=== PATIENT | female | born 1940 | race Caucasian/White ===

== ENCOUNTER → 2018-05-21 00:53 | Outpatient (CLI) | payer BC, SELFPAY ==
--- NOTE | 2018-05-21 14:46 | DI.REPORT_ITS ---
SYMPTOMS/DIAGNOSIS: PREVENTATIVE HEALTH CARE, Z00.00, OSTEOPOROSIS, M81.0 DEXA SCAN: Routine examination. Comparison is 2013. Evaluation of the lateral spine shows no compression deformities. Evaluation of the left hip shows a total T score of -4.1 and a Z score of -2.3; this compares with a total T score of -3.7 from 2014. The finding is consistent with osteoporosis and an increased fracture risk. Evaluation of the lumbar spine shows a total T score of -3 and a Z score of -0.5; this compares with a total T score of -2.8 from 2014. This is also consistent with osteoporosis and a high fracture risk. IMPRESSION: Osteoporosis in the lumbar spine and left hip.
--- NOTE | 2018-05-21 15:18 | DI.REPORT_ITS ---
SYMPTOMS/DIAGNOSIS: SCREENING, [facility], Z00.00 MAMMOGRAMS: Mammograms were interpreted according to the usual protocol including computer analysis with CAD system, tomosynthesis and C view imaging. Comparison is with the prior examinations. No masses or microcalcifications are seen. There is nothing to suggest malignancy. IMPRESSION: Negative mammogram. Routine screening is recommended. Category 1 , breast density B. SA ASSESSMENT OF FINDINGS: Negative. Category 1. Patient will receive a letter notifying them of these results. BI-RADS category B. There are scattered areas of fibroglandular density.
== END ==
PROVIDERS: PCP Family Medicine; Visit Provider Family Medicine
DX: Z00.00 Encounter for general adult medical examination without abnormal findings (principal); M81.0 Age-related osteoporosis without current pathological fracture; Z12.31 Encounter for screening mammogram for malignant neoplasm of breast
CPT/HCPCS: 77063; 77067; 77080

== ENCOUNTER 2018-11-08 01:01 | Outpatient (CLI) | payer BC, SELFPAY ==
[2018-11-08 11:22] LABS: Anion Gap 4.3 mmol/L (3-11); BUN 20 mg/dL (7-18); CO2 35.7 mmol/L (21.0-32.0); CREATININE 0.79 mg/dL (0.55-1.02); Calcium 9.2 mg/dL (8.5-10.1); Chloride 96 mmol/L (98-107); Glucose 126 mg/dL (70-100); Potassium 4.4 mmol/L (3.5-5.1); Sodium 136 mmol/L (136-145); TSH (W/Ref FT4) 0.67 uIU/mL (0.358-3.74)
== END 2018-11-08 01:21 ==
PROVIDERS: PCP Family Medicine; Visit Provider Family Medicine
DX: I10 Essential (primary) hypertension (principal); E03.9 Hypothyroidism, unspecified
CPT/HCPCS: 36415; 80048; 84443

== ENCOUNTER 2019-05-19 12:17 | Outpatient (REF) | payer BC, SELFPAY ==
[2019-05-19 19:00] LABS: COMMENT (LAB VIEW ONLY) 29.04 mg/dL; Microalb ug/mg Crea 15.2 ug/mg Cr
== END 2019-05-19 12:37 ==
LOC: NCHCN 12:17
PROVIDERS: PCP Family Medicine; Visit Provider Family Medicine
DX: E10.9 Type 1 diabetes mellitus without complications (principal)
CPT/HCPCS: 82043; 82570

== ENCOUNTER 2019-06-14 08:59 | Emergency (ER) | payer BC, SELFPAY ==
[2019-06-14 08:58] VITALS: BP 171/67; PULSE 65
[2019-06-14 09:01] VITALS: BP 156/55; PULSE 55
[2019-06-14 09:06] VITALS: BP 171/67; PULSE 64; RESP 16; TEMP 36.6; O2SAT 93
--- NOTE | 2019-06-14 09:24 | W.ED.GENAD ---
Discharge Plan Disposition Patient Disposition: HOME Condition: Improving Discharge Details Chief Complaint: GenMedical Clinical Impression: Postoperative bleeding from incision Primary Care Provider: Evelyn Nevarez ED Provider: Kannan Jackson Home Meds and New Rx's Prescriptions: Continued acetaminophen [Tylenol] 325 MG tablet 325 mg PO Q4H PRN RF: 0 aspirin [Aspirin Low-Strength] 81 MG tablet,chewable 81 mg PO DAILY RF: 0 levothyroxine [Synthroid] 88 MCG tablet 88 mcg PO DAILY RF: 0 losartan 25 MG tablet 25 mg PO DAILY RF: 0 vitamin B complex 1 EACH capsule 1 ea PO DAILY RF: 0 cholecalciferol (vitamin D3) [Vitamin D3] 1,000 UNIT capsule 1,000 unit PO DAILY RF: 0 simvastatin [Zocor] 10 MG tablet 10 mg PO DAILY RF: 0 lorazepam 0.5 MG tablet 0.5 mg PO HS RF: 0 sertraline [Zoloft] 25 MG tablet 50 mg PO DAILY RF: 0 Humalog U-100 Insulin 100 UNIT/1 ML solution 100 unit SQ .PUMP RF: 0 Discharge Instructions Instructions: Acute Wound Care (ED), Skin Adhesive Care (ED) Additional Instructions: Please keep wound clean and dry and you may now let it be exposed to air. Try to minimize touching or manipulation of the wound itself to allow for appropriate reduction of bleeding. Return to the emergency department as needed for any further bleeding new or worsening symptoms or signs of infection. Otherwise follow-up with dermatology as previously scheduled. Referrals: Roger Dunne MD [ CONSULTING PHYSICIAN] - (Follow-up with informatics physician liaison as previously directed) Discharge Data Discharge Date/Time-TO BE ENTERED AT DEPARTURE: 06/14/19 10:14 Medical Decision Making Patient presenting to the emergency department for chief complaint of postprocedural facial bleeding. Patient had skin cancer removed from left cheek on by Dr. Dnune and she has noted bleeding continuing ever since the procedure occurred. She states that she attempted to contact his office for follow-up recommendations but was unable to contact anybody. Patient reports applying pressure, ice, and bandage changes with inability to stop bleeding. Patient has approximately 1 cm laceration with [address] to the left cheek with mild oozing type bleeding. No signs of dehiscence, infection, or other complications. Topical let was applied and left on for greater than 10 minutes to help with hemostasis and then small dab of glue was placed upon the inferior aspect of the wound where most of the bleeding was coming from to prevent any further oozing type bleeding. Return precautions discussed otherwise patient to follow-up with dermatology as previously directed. After discussion of diagnosis and plan of care patient has no further needs, questions, or concerns and states clear understanding to return to the emergency department for any worsening symptoms. HPI General Mode of arrival: ambulatory. Date/Time Provider Initiated Documentation: 06/14/19 09:08. Limitations to Documentation: no limitations. Information obtained by: patient. History of Present Illness 78 year old F presents to the emergency department with the chief complaint of Postprocedural bleeding, described as moderate, Quality is described as other (Denies pain), and is localized to the face. Patient started experiencing this day(s) (3) and it has been constant. No relieving factors improve symptom(s), No exacerbating factors reported . Patient notes no other symptoms.. Patient did receive the following treatments prior to arrival, none Related Data Home Medications Medication Instructions Recorded Confirmed Humalog U-100 Insulin 100 unit SQ .PUMP 12/24/12 09/27/18 acetaminophen [Tylenol] 325 mg PO Q4H PRN tab-cap 03/12/13 09/27/18 aspirin [Aspirin Low-Strength] 81 mg PO DAILY tab.chew 03/12/13 09/27/18 cholecalciferol (vitamin D3) 1,000 unit PO DAILY 05/14/15 09/27/18 [Vitamin D3] levothyroxine [Synthroid] 88 mcg PO DAILY tab-cap 05/14/15 09/27/18 losartan 25 mg PO DAILY tab-cap 05/14/15 09/27/18 vitamin B complex 1 ea PO DAILY 05/14/15 09/27/18 lorazepam 0.5 mg PO HS 08/28/17 09/27/18 sertraline [Zoloft] 50 mg PO DAILY tab-cap 08/28/17 09/27/18 simvastatin [Zocor] 10 mg PO DAILY tab-cap 08/28/17 09/27/18 Allergies Allergy/AdvReac Type Severity Reaction Status Date / Time metronidazole Allergy Unverified 09/27/18 08:05 amoxicillin trihydrate AdvReac Intermediate Nausea Unverified 09/27/18 08:05 [From Augmentin] blue dye AdvReac Intermediate Uncomfortab Unverified 09/27/18 08:05 le dicyclomine AdvReac Intermediate Headache Unverified 09/27/18 08:05 potassium clavulanate AdvReac Intermediate Nausea Unverified 09/27/18 08:05 [From Augmentin] General Stated Complaint: GenMedical LASHELL: 4 Review of Systems Cardiovascular Denies lightheadedness Integumentary/Breasts Reports as per HPI Hematologic/Lymphatic Denies easy bleeding and Denies easy bruising PFSH Medical History Depression Diabetes mellitus Social History Smoking/Tobacco Use Status: Never Alcohol Intake: never Drug use: Never Substance use type: does not use Do you feel safe in your relationship?: Yes Exam Const General: cooperative and no acute distress Orientation: alert, awake and oriented x3 Resp Effort & Inspection: normal respiratory effort and able to speak in complete sentences Skin Trauma: laceration (Approximately 1cm) left face linear and actively bleeding Course Vital Signs Temperature 36.6 C 06/14/19 09:06 Pulse 64 06/14/19 09:06 Respiratory Rate 16 06/14/19 09:06 Blood Pressure 171/67 H 06/14/19 09:06 Pulse Oximetry 93 L 06/14/19 09:06 Temperature 36.6 C 06/14/19 09:06 Temperature Source Skin 06/14/19 09:06 Pulse 64 06/14/19 09:06 Respiratory Rate 16 06/14/19 09:06 Respiratory Effort Non-Labored 06/14/19 09:09 Blood Pressure 171/67 H 06/14/19 09:06 Blood Pressure Position Sitting 06/14/19 09:06 Pulse Oximetry 93 L 06/14/19 09:06 Oxygen Delivery Method Room Air 06/14/19 09:06 Oxygen Flow Rate 0 06/14/19 09:06
[2019-06-14] MEDS: Lidocaine/Epinephri/Tetracaine Topical Gel 3 ML TP (09:30)
[2019-06-14 09:50] VITALS: RESP 15
--- NOTE | 2019-06-14 10:03 | NUR.NOTE ---
Nursing Note: Pt resting in stretcher. no signs of distress. No bleeding noted from surgical site.
== END 2019-06-14 10:14 | disposition home or self-care (01) ==
PROVIDERS: Emergency Provider Nurse Practitioner Family; PCP Family Medicine
DX: L76.21 Postprocedural hemorrhage of skin and subcutaneous tissue following a dermatologic procedure (principal); E11.9 Type 2 diabetes mellitus without complications; Z79.4 Long term (current) use of insulin
CPT/HCPCS: 12011

== ENCOUNTER 2019-11-11 12:52 | Outpatient (REF) | payer BC, SELFPAY ==
[2019-11-11 14:23] LABS: Folate 14.7 ng/mL (8.6-20.0); Vitamin B12 316 pg/mL (193-986)
== END 2019-11-11 13:12 ==
LOC: NCHCN 12:52
PROVIDERS: PCP Family Medicine; Visit Provider Family Medicine
DX: D75.89 Other specified diseases of blood and blood-forming organs (principal)
CPT/HCPCS: 82607; 82746

== ENCOUNTER 2019-11-28 20:53 | Emergency (ER) | payer BC, SELFPAY ==
[2019-11-28 21:05] VITALS: BP 114/81; PULSE 61; RESP 16; TEMP 36.3; O2SAT 99
--- NOTE | 2019-11-28 21:15 | W.ED.GENAD ---
Discharge Plan Disposition Patient Disposition: HOME Condition: Stable Discharge Details Chief Complaint: Nausea/Vomit/Diar Clinical Impression: Diarrhea Primary Care Provider: Evelyn Nevarez ED Provider: Raghu Clifton Holley Meds and New Rx's Prescriptions: Continued acetaminophen [Tylenol] 325 MG tablet 325 mg PO Q4H PRN RF: 0 aspirin [Aspirin Low-Strength] 81 MG tablet,chewable 81 mg PO DAILY RF: 0 vitamin B complex 1 EACH capsule 1 ea PO DAILY RF: 0 (DME) insulin syringe-needle U-100 [BD Insulin Syringe] 0.5 mL 29 gauge x 1/2 syringe See Rx Instructions .ROUTE .MEDSUPPLY Qty: 10 RF: 0 (DME) lancets [OneTouch UltraSoft Lancets] Misc See Rx Instructions .ROUTE .MEDSUPPLY Qty: 50 RF: 0 (DME) Contour Next Test Strips Strip See Rx Instructions .ROUTE .MEDSUPPLY Qty: 10 RF: 0 ketotifen fumarate [Alaway] 0.025 % (0.035 %) drops 1 drp OP BID RF: 0 ascorbate calcium (vitamin C) 500 mg tablet 500 mg PO DAILY RF: 0 polyethylene glycol 3350 [Miralax] 17 gram/dose powder 17 gm PO QHS PRNRF: 0 alum-mag hydroxide-simeth 200-200-20 mg/5 mL suspension 30 ml PO Q6H PRNRF: 0 Levemir U-100 Insulin 100 unit/mL solution 6 unit SC QHS RF: 0 sertraline 50 mg tablet 125 mg PO DAILY RF: 0 losartan 25 mg tablet 50 mg PO DAILY RF: 0 cholecalciferol (vitamin D3) [Vitamin D3] 25 mcg (1,000 unit) capsule 1,000 unit PO DAILY RF: 0 insulin lispro [Humalog U-100 Insulin] 100 unit/mL solution 100 unit subcut .PUMP RF: 0 levothyroxine [Synthroid] 88 mcg tablet 88 mcg PO DAILY RF: 0 lorazepam 0.5 mg tablet 0.5 mg PO HS RF: 0 simvastatin [Zocor] 10 mg tablet 10 mg PO DAILY RF: 0 Discharge Instructions Instructions: Acute Diarrhea (ED) Additional Instructions: if your stool is not soft or watery you do not need to collect any sample if symptoms continue this week see your primary care provider if you have abdominal pain, vomit or high fevers return to the emergency department Medical Decision Making 79 yo female who underwent Endoscopy yesterday at [facility] [place] for reflux symptoms comes in because she has had diarrhea today. Denies fevers, abdominal pain, vomit, recent travel, recent abx that she is aware of (unsure if any during procedure), no recent hospitalizations. STates she has had 7 watery stools today no blood or black stools. HAs no abdominal tenderness at all so doubt surgical pathology such as sbo and do not feel imaging at this time indicated. Will evaluate for electrolyte abnormalities and obtain stool sample. pt's labs reassuring, still no vomit or abdominal pain and not able to provide specimen here. Suspect this is related to her procedure but will send home with stool collection kit to return to lab when she is able to provide sample, return precautions given Differential Diagnosis Differential Diagnosis: c diff, viral gastroenteritis, food illness Medical Records Medical records reviewed: Yes I reviewed the patient's medical records. HPI General Mode of arrival: ambulatory. Date/Time Provider Initiated Documentation: 11/28/19 20:55. Limitations to Documentation: no limitations. Information obtained by: patient. History of Present Illness 79 year old F presents to the emergency department with the chief complaint of diarrhea, described as moderate, and it has been constant. No relieving factors improve symptom(s), No exacerbating factors reported . Patient did receive the following treatments prior to arrival, none Related Data Home Medications Medication Instructions Recorded Confirmed acetaminophen [Tylenol] 325 mg PO Q4H PRN tab-cap 03/12/13 11/28/19 aspirin [Aspirin Low-Strength] 81 mg PO DAILY tab.chew 03/12/13 11/28/19 vitamin B complex 1 ea PO DAILY 05/14/15 11/28/19 aluminum-mag hydroxide-simethicone 30 ml PO Q6H PRN ml 10/31/19 11/28/19 200 mg-200 mg-20 mg/5 mL oral susp ascorbate calcium (vitamin C) 500 500 mg PO DAILY 10/31/19 11/28/19 mg tablet blood sugar diagnostic #10 each 10/31/19 11/13/19 cholecalciferol (vitamin D3) 25 1,000 unit PO DAILY 10/31/19 11/28/19 mcg (1,000 unit) capsule insulin detemir U-100 100 unit/mL 6 unit SC QHS ml 10/31/19 11/28/19 subcutaneous solution insulin lispro 100 unit/mL 100 unit SUBCUT .PUMP 10/31/19 11/28/19 subcutaneous solution insulin syringe-needle U-100 0.5 #10 each 10/31/19 11/13/19 mL 29 gauge x 1/2 ketotifen fumarate 0.025 % (0.035 1 drp OP BID 10/31/19 11/28/19 %) eye drops lancets #50 each 10/31/19 11/13/19 levothyroxine 88 mcg tablet 88 mcg PO DAILY tab-cap 10/31/19 11/28/19 lorazepam 0.5 mg tablet 0.5 mg PO HS 10/31/19 11/28/19 losartan 25 mg tablet 50 mg PO DAILY tab-cap 10/31/19 11/28/19 polyethylene glycol 3350 17 17 gm PO QHS PRN gm 10/31/19 11/28/19 gram/dose oral powder sertraline 50 mg tablet 125 mg PO DAILY tab 10/31/19 11/28/19 simvastatin 10 mg tablet 10 mg PO DAILY tab-cap 10/31/19 11/28/19 Allergies Allergy/AdvReac Type Severity Reaction Status Date / Time demeclocycline Allergy Intermediate Verified 11/13/19 09:28 [From Declomycin] metronidazole Allergy Verified 11/13/19 09:28 amoxicillin trihydrate AdvReac Intermediate Nausea Verified 11/13/19 09:28 [From Augmentin] blue dye AdvReac Intermediate Uncomfortab Verified 11/13/19 09:28 le dicyclomine AdvReac Intermediate Headache Unverified 09/27/18 08:05 potassium clavulanate AdvReac Intermediate Nausea Verified 11/13/19 09:28 [From Augmentin] General Stated Complaint: Nausea/Vomit/Diar LASHELL: 3 Review of Systems All systems reviewed & are unremarkable except as noted in HPI and below Constitutional Constitutional: Denies chills, Denies fever(s) and Denies weakness Cardiovascular Cardiovascular: Denies chest pain and Denies dyspnea Respiratory Respiratory: Denies cough and Denies dyspnea Gastrointestinal Gastrointestinal: Denies abdominal pain and Denies vomiting Musculoskeletal Musculoskeletal: Denies joint swelling Neurologic Neurologic: Denies weakness Psychiatric Psychiatric: Denies depression [facility] Medical History (Updated 11/28/19 @ 22:08 by Raghu Clifton MD) Abrasion of labia with infection (Resolved) 08/2019 treated with use of mupirocin 2%. Lesion healed at time of WW C visit 11/13/2019. KLAUDIA positive (Acute) Anxiety with depression (Acute) Basal cell carcinoma (Acute) Cataract (Chronic) Depression Diabetes mellitus Dysphagia (Acute) Gastroparesis diabeticorum (Acute) Generalized degenerative joint disease of hand (Acute) Hematuria, microscopic (Acute) History of basal cell carcinoma (BCC) (Acute) Hyperlipidemia (Acute) Hypertension, essential, benign (Acute) Hypothyroidism (Chronic) Macrocytosis (Acute) Osteoporosis (Chronic) Preventative health care (Acute) Tremor (Acute) Tremor, essential (Acute) Trochanteric bursitis, left hip (Acute) Type 1 diabetes mellitus without complications (Acute) Urinary incontinence (Acute) Social History Smoking/Tobacco Use Status: Never Alcohol Intake: never Drug use: Never Substance use type: does not use Do you feel safe at home: Yes Do you feel safe in your relationship?: Yes Exam Const General: no acute distress Orientation: alert HENMT Head: normal to inspection Ears: external ears normal General nose exam: external nose normal Mouth: moist mucous membranes Eyes General: appearance normal, both eyes and all related structures Neck Neck: normal visual inspection Resp Effort & Inspection: normal respiratory effort and able to speak in complete sentences Cardio Rate: regular rate GI Palpation: soft and nontender Skin General skin exam: no rashes or lesions noted Neuro General: alert and oriented x3 Extrem General: normal to inspection Psych Mental Status: mental status grossly normal Course Vital Signs Vital signs: Vital Signs Temperature 36.3 C L 11/28/19 21:05 Pulse 61 11/28/19 21:05 Respiratory Rate 16 11/28/19 21:05 Blood Pressure 114/81 11/28/19 21:05 Pulse Oximetry 99 11/28/19 21:05 Temperature 36.3 C L 11/28/19 21:05 Temperature Source Skin 11/28/19 21:05 Pulse 61 11/28/19 21:05 Respiratory Rate 16 11/28/19 21:05 Respiratory Effort 11/28/19 21:03 Blood Pressure 114/81 11/28/19 21:05 Pulse Oximetry 99 11/28/19 21:05 Oxygen Delivery Method Room Air 02/14/20 21:05 Oxygen Flow Rate 0 11/28/19 21:05
[2019-11-28 21:24] LABS: Absolute Basophil Count 0.01 k/cumm (0.0-0.2); Absolute Eosinophil Count 0.05 k/cumm (0.0-0.7); Absolute Lymphocyte Count 1.89 k/cumm (1.2-3.4); Absolute Monocyte Count 0.46 k/cumm (0.11-0.7); Basophils % 0.2; Eosinophils % 0.9; HCT 38.5 % (36.0-46.0); HGB 13.1 g/dL (12.0-15.5); Lymphocytes % 32.5; Mean Corpuscular Hemoglobin 33.6 pg (27.0-33.0); Mean Corpuscular Volume 98.7 fL (80-95); Mean Platelet Volume 10.1 fL (8.0-11.0); Monocytes % 7.9; Neutrophils % 58.5; Platelet Count 237 x1000/uL (130-400); RBC Distribution Width 12.1 % (11.7-14.6); White Blood Cell Count 5.81 k/cumm (4.4-10.8)
[2019-11-28] MEDS: Normal Saline 1,000 ML 1000 ML IV (21:28)
[2019-11-28] MEDS: Loperamide 2 MG CAP 4 MG PO (21:28)
[2019-11-28] MEDS: Normal Saline Flush 10 ML SYR IVP (21:29)
--- NOTE | 2019-11-28 21:30 | NUR.NOTE ---
Pt reports diarrhea all day after having upper endoscopy at [facility] [place] 11/27/19. Pt reports abd tenderness with palpation. Denies black/bloody stools. #20 RAC, labs drawn. NS infusing. Denies fevers, recent abx use.
[2019-11-28 21:36] LABS: ALT 34 U/L (14-59); AST 34 U/L (15-37); Alkaline Phosphatase 142 U/L (46-116); Anion Gap 6.8 mmol/L (3-11); BUN 17 mg/dL (7-18); Bilirubin, Total 0.3 mg/dL (0.2-1.0); CO2 31.2 mmol/L (21.0-32.0); CREATININE 0.81 mg/dL (0.55-1.02); Calcium 9.3 mg/dL (8.5-10.1); Chloride 97 mmol/L (98-107); Glucose 172 mg/dL (74-106); Magnesium 1.8 mg/dL (1.8-2.4); Potassium 4.2 mmol/L (3.5-5.1); Sodium 135 mmol/L (136-145); Total Protein 7.4 g/dL (6.4-8.2)
[2019-11-28 21:37] LABS: PTT Activated 23.3 sec (21.0-31.4); Prothrombin Time 10.4 sec (9.3-11.0)
--- NOTE | 2019-11-28 22:11 | NUR.NOTE ---
up to BR x 2, no further diarrhea. plan for DC home.
[2019-11-28 22:30] VITALS: BP 156/68; PULSE 65; RESP 16; O2SAT 100
== END 2019-11-28 22:10 | disposition home or self-care (01) ==
PROVIDERS: Emergency Provider Emergency Medicine; PCP Family Medicine
DX: R19.7 Diarrhea, unspecified (principal); I10 Essential (primary) hypertension; E10.9 Type 1 diabetes mellitus without complications
CPT/HCPCS: 36415; 80053; 96360; 99284; 83735; 85025; 85610; 85730

== ENCOUNTER 2020-03-19 03:16 | Outpatient (CLI) | payer BC, MEDICARE, SELFPAY ==
[2020-03-19 11:09] LABS: Hemoglobin A1C 7.6 % (3.8-5.6)
[2020-03-19 12:00] LABS: Anion Gap 5.3 mmol/L (3-11); BUN 24 mg/dL (7-18); CO2 30.7 mmol/L (21.0-32.0); CREATININE 0.87 mg/dL (0.55-1.02); Chloride 96 mmol/L (98-107); Glucose 198 mg/dL (74-106); Potassium 4.4 mmol/L (3.5-5.1); Sodium 132 mmol/L (136-145)
== END 2020-03-19 03:36 ==
PROVIDERS: PCP Family Medicine; Visit Provider Urology
DX: E10.9 Type 1 diabetes mellitus without complications (principal); N39.41 Urge incontinence
CPT/HCPCS: 36415; 80048; 83036

== ENCOUNTER 2020-05-20 01:17 | Outpatient (CLI) | payer BC, MEDICARE, SELFPAY ==
--- NOTE | 2020-05-20 10:33 | DI.US_ITS ---
APPROVED REPORT EXAM: Comprehensive 2D, Doppler, and color-flow Echocardiogram Patient Location: Out-Patient [employer] Layer Helper: Alyson Mcwilliams RDCS (AE) Indications: Edema Other Information Study Quality: Adequate Conclusion Left Ventricle : The left ventricle is normal size. The left ventricular systolic function is normal. The left ventricular ejection fraction is within the normal range. There is normal left ventricular wall thickness. There is normal LV segmental wall motion. There is grade 2 diastolic dysfunction. LVE F is 60%. Right Ventricle : The right ventricle is normal size. The right ventricular systolic function is norm al. The RVSP is 26.6mmHg. Atria : The left atrium size is normal. The right atrium size is normal. Valves: There are no hemodynamically significant valvular lesions. Great Vessels : The aortic root is normal in size. Ascending aorta is not well visualized. Aortic arc h is not well visualized. IVC is normal in size and collapses >50% with inspiration. There is no prior study available for comparison. No LV wall thickness is measured as normal, LV mass appears large. Would consider additional imaging with cardiac MRI and consideration for cardiac amyloidosis. Wall motion Left Ventricle The left ventricle is normal size. The left ventricular systolic function is normal. The left ventric ular ejection fraction is within the normal range. There is normal left ventricular wall thickness. T here is normal LV segmental wall motion. There is grade 2 diastolic dysfunction. There is no ventricu lar septal defect visualized. LVEF is 60%. Right Ventricle The right ventricle is normal size. The right ventricular systolic function is normal. The RVSP is 26 .6mmHg. Atria The left atrium size is normal. The right atrium size is normal. The interatrial septum is intact wit h no evidence for an atrial septal defect. Aortic Valve The Aortic valve is sclerotic. Aortic valve is probably trileaflet. There is no aortic valvular steno sis. No aortic regurgitation is present. Mitral Valve Severe mitral annular calcification. No evidence of mitral valve stenosis. Mild mitral regurgitation. Tricuspid Valve The tricuspid valve is normal in structure. There is no tricuspid valve stenosis. Mild tricuspid regu rgitation. Pulmonic Valve The pulmonary valve is normal in structure. There is no pulmonic valvular stenosis. There is no pulmo ciaran valvular regurgitation. Great Vessels The aortic root is normal in size. Ascending aorta is not well visualized. Aortic arch is not well vi sualized. IVC is normal in size and collapses >50% with inspiration. Pericardium There is no pericardial effusion. 2D Dimensions IVSD d PLAX 0.72 cm F: 0.6-1.0 LV Vol A2C d MOD 43.9 mL LVPW d PLAX 0.74 cm F: 0.6 - 1.0 LV Vol A4C d MOD 43.1 mL LVID d PLAX 3.46 cm F: 3.8 - 5.2 LA vol/ BSA A4C s A-L 23.8 mL/m2 LVDs 2.35 cm F: 2.2 - 3.5 LA Area A4C s MOD 13.23 cm2 Ao Root d 2.76 cm F: 2.7 - 3.3 LV EF A4C MOD 62.6 % RA Area A4C 10.48 cm2 LV EF A2C MOD 64.3 % RA Vol/ BSA A4C s A-L 16.5 mL/m2 LV EF Biplane MOD 63.4 % LV EF Teichholz 61.3 % SV 29.36 mL LVEF (Kumar's) 63.37 % F: 54 - 74 SV Index 21.72 mL/m2 LV Volume 40.30 mL F: 46 - 106 LV Volume Index 29.85 mL/m2 F: 29 - 61 LV Vol Biplane MOD 46.3 mL FS 32.00 % M-Mode TAPSE 2.20 cm (M/F) >1.7 LV Diastology MV E' medial 0.049 (>0.07 m/s) E/A Ratio 0.8 LV E/e MED 22.75 (<14) MV E Vmax 1.11 (0.4-1.3 m/s) MV E' lateral 0.057 (>0.1 m/s) MV A Vmax 1.35 (0.4-1.3 m/s) LV E/e LAT 19.60 (<14) MV E/A Ratio 0.81 MV E/E' medial 22.77 MV E/E' lateral 19.63 Aortic Valve LVOT Area 2.07 cm2 AoV Area Vmax 1.24 cm2 LVOT Vmax 1.01 m/s AoV Area/ BSA (Vmax) 0.91 cm2/m2 LVOT Mean Emmanuel. 0.65 m/s DAHLIA Mean Emmanuel. 1.28 cm2 LVOT Peak Grad 4.1 mmHg DAHLIA Mean Emmanuel. Index 0.94 cm2/m2 LVOT Mean Grad 2.0 mmHg LVOT VTI 0.215 m LVOT Diam s 1.60 cm AoV Vmax 1.69 m/s Velocity Ratio 0.59 AoV Mean Emmanuel. 1.05 m/s AoV Peak Grad 11.4 mmHg LVOT SV 44.49 mL AoV Mean Grad 5.2 mmHg AoV VTI 0.322 m AoV Area VTI 1.38 cm2 AoV Area/ BSA (VTI) 1.02 cm/m2 Mitral Valve MV DT 323 (160-240 msec) MV PHT 94 msec MV Area PHT 2.35 cm2 MV VTI 0.457 m MV Area VTI 0.97 (4.0-6.0 cm2) Pulmonary Valve PV Vmax 0.91 (0.5-1.5 m/s) RVOT Peak Gr. 3.00 mmHg PV Peak Grad 3.3 mmHg RVOT Mean Gr. 1.50 mmHg PV Mean Grad 1.7 mmHg RVOT VTI 0.194 m PV VTI 0.210 m RVOT Vmax 0.87 m/s Tricuspid Valve TR Peak Grad 23.5 mmHg TR Vmax 2.43 m/s RA Pressure 3.00 mmHg RVSP (TR) 26.6 mmHg
== END 2020-05-20 01:37 ==
PROVIDERS: PCP Family Medicine; Visit Provider Family Medicine
DX: R60.0 Localized edema (principal); I08.1 Rheumatic disorders of both mitral and tricuspid valves
CPT/HCPCS: 93306

== ENCOUNTER 2020-06-03 01:24 | Outpatient (CLI) | payer BC, SELFPAY ==
[2020-06-03 13:10] LABS: HCT 37.4 % (36.0-46.0); HGB 12.5 g/dL (11.2-15.7); MCH 33.6 pg (27.0-33.0); MCHC 33.4 % (32.0-36.0); MCV 100.5 fL (80-95); MPV 10.5 fL (8.0-11.0); Platelet Count 200 10^3/uL (130-400); RBC 3.72 10^6/uL (3.93-5.22); RDW 12.3 % (11.7-14.6); RDW-SD 45.4 fL; WBC 5.88 10^3/uL (4.4-10.8)
[2020-06-03 14:20] LABS: Vitamin D 25 Total 58.8 ng/ml (30-100)
[2020-06-03 14:24] LABS: ALT 30 U/L (14-59); AST 23 U/L (15-37); Albumin 3.9 g/dL (3.4-5.0); Alkaline Phosphatase 133 U/L (46-116); Anion Gap 7.7 mmol/L (3-11); BUN 25 mg/dL (7-18); Bilirubin, Total 0.3 mg/dL (0.2-1.0); CO2 29.3 mmol/L (21.0-32.0); Chloride 97 mmol/L (98-107); Folate 17.8 ng/mL (8.6-20.0); Glucose 255 mg/dL (74-106); Potassium 4.2 mmol/L (3.5-5.1); Sodium 134 mmol/L (136-145); TSH (W/Ref FT4) 0.31 uIU/mL (0.36-3.74); Vitamin B12 277 pg/mL (193-986)
[2020-06-03 14:42] LABS: FREE T4 1.05 ng/dL (0.76-1.46)
[2020-06-04 11:43] LABS: Kappa Free Light Chain 2.65 mg/dL (0.33-1.94); Lambda Free Light Chain 2.22 mg/dL (0.57-2.63)
[2020-06-04 13:46] LABS: Albumin 61.2 % (55.8-66.1); Total Protein 6.9 g/dL (6.3-8.2)
== END 2020-06-03 01:44 ==
PROVIDERS: PCP Family Medicine; Visit Provider Family Medicine
DX: E10.9 Type 1 diabetes mellitus without complications (principal); I10 Essential (primary) hypertension; E03.9 Hypothyroidism, unspecified; M81.0 Age-related osteoporosis without current pathological fracture; R60.0 Localized edema; I51.7 Cardiomegaly
CPT/HCPCS: 36415; 80053; 82306; 85027; 82607; 82746; 83036; 83883; 84165; 84439; 84443

== ENCOUNTER 2020-10-01 15:26 | Outpatient (REF) | payer BC, SELFPAY ==
[2020-10-04 16:07] LABS: COVID-19 RT-PCR UVMMC Result Negative (Negative)
== END 2020-10-01 15:46 ==
LOC: NCHCN 15:26
PROVIDERS: PCP Family Medicine; Visit Provider Nurse Practitioner Family
DX: R53.83 Other fatigue
CPT/HCPCS: U0003

== ENCOUNTER 2020-10-11 18:09 | Emergency (ER) | payer BC, SELFPAY ==
[2020-10-11 18:16] VITALS: BP 130/66; PULSE 72; RESP 20; TEMP 36.5; O2SAT 100
[2020-10-11 18:43] LABS: Abs Immature Grans 0.02 10^3/uL (0.0-0.06); Absolute Basophil Count 0.01 10^3/uL (0.0-0.2); Absolute Eosinophil Count 0.02 10^3/uL (0.0-0.7); Absolute Lymphocyte Count 1.17 10^3/uL (1.2-3.4); Absolute Monocyte Count 0.38 10^3/uL (0.1-0.8); Absolute Neutrophil Count 5.11 10^3/uL (1.2-6.7); Basophils % 0.1; Eosinophils % 0.3; HGB 12.4 g/dL (11.2-15.7); Immature Grans % 0.3; Lymphocytes % 17.4; MCH 33.9 pg (27.0-33.0); MCHC 34.4 % (32.0-36.0); MCV 98.4 fL (80-95); MPV 10.8 fL (8.0-11.0); Monocytes % 5.7; Neutrophils % 76.2; Nucleated RBC 0 %; Platelet Count 202 10^3/uL (130-400); RBC 3.66 10^6/uL (3.93-5.22); RDW 11.9 % (11.7-14.6); RDW-SD 42.5 fL; WBC 6.71 10^3/uL (4.4-10.8)
[2020-10-11] MEDS: Normal Saline 1,000 ML 1000 ML IV (18:46)
[2020-10-11 18:56] LABS: ALT 27 U/L (14-59); AST 22 U/L (15-37); Albumin 3.8 g/dL (3.4-5.0); Alkaline Phosphatase 140 U/L (46-116); Anion Gap 6.3 mmol/L (3-11); BUN 28 mg/dL (7-18); Bilirubin, Total 0.3 mg/dL (0.2-1.0); CO2 29.7 mmol/L (21.0-32.0); CREATININE 1.09 mg/dL (0.55-1.02); Calcium 8.9 mg/dL (8.5-10.1); Chloride 94 mmol/L (98-107); Estimated GFR 48.42 (mL/min/1.73m2); Glucose 441 mg/dL (74-106); Potassium 3.9 mmol/L (3.5-5.1); Sodium 130 mmol/L (136-145); Total Protein 6.9 g/dL (6.4-8.2)
--- NOTE | 2020-10-11 19:55 | NUR.NOTE ---
Nursing Note: Patient turned off personal insulin pump.
[2020-10-11 19:58] LABS: Bilirubin Negative (Negative); Blood Trace-intact (Negative); Clarity Clear (Clear); Glucose 500 mg/dL (Negative); Ketones Negative (Negative); Leukocyte Esterase Negative (Negative); Nitrite Negative (Negative); Urobilinogen 0.2 EU/dL (Up TO 0.2)
[2020-10-11] MEDS: Insulin Aspart 100 UNITS/ML UNIT 10 UNITS SC (20:05)
[2020-10-11 20:07] LABS: Bacteria Negative HPF (Negative); C & S Indicated? No; Casts Negative LPF (Negative); Crystals Negative HPF (Negative); Epithelial Cells Few HPF (Negative); Mucus Negative (Negative); RBC 0-2 HPF (0-2)
--- NOTE | 2020-10-11 20:25 | ED.GENADUL_ITS ---
Discharge Plan Disposition Patient Disposition: HOME Condition: Stable Discharge Details Clinical Impression: Hyperglycemia, Urinary incontinence Primary Care Provider: Evelyn Nevarez ED Provider: uPneet Bell Home Meds and New Rx's Prescriptions: No Action acetaminophen [Tylenol] 325 MG tablet 325 mg PO Q4H PRN RF: 0 aspirin [Aspirin Low-Strength] 81 MG tablet,chewable 81 mg PO DAILY RF: 0 vitamin B complex 1 EACH capsule 1 ea PO DAILY RF: 0 (DME) insulin syringe-needle U-100 [BD Insulin Syringe] 0.5 mL 29 gauge x 1/2 syringe See Rx Instructions .ROUTE .MEDSUPPLY Qty: 10 RF: 0 (DME) lancets [OneTouch UltraSoft Lancets] Misc See Rx Instructions .ROUTE .MEDSUPPLY Qty: 50 RF: 0 (DME) Contour Next Test Strips Strip See Rx Instructions .ROUTE .MEDSUPPLY Qty: 10 RF: 0 ketotifen fumarate [Alaway] 0.025 % (0.035 %) drops 1 drp OP BID RF: 0 ascorbate calcium (vitamin C) 500 mg tablet 500 mg PO DAILY RF: 0 polyethylene glycol 3350 [Miralax] 17 gram/dose powder 17 gm PO QHS PRNRF: 0 alum-mag hydroxide-simeth 200-200-20 mg/5 mL suspension 30 ml PO Q6H PRNRF: 0 Levemir U-100 Insulin 100 unit/mL solution 6 unit SC QHS RF: 0 sertraline 50 mg tablet 125 mg PO DAILY RF: 0 losartan 25 mg tablet 50 mg PO DAILY RF: 0 cholecalciferol (vitamin D3) [Vitamin D3] 25 mcg (1,000 unit) capsule 1,000 unit PO DAILY RF: 0 insulin lispro [Humalog U-100 Insulin] 100 unit/mL solution 100 unit subcut .PUMP RF: 0 levothyroxine [Synthroid] 88 mcg tablet 88 mcg PO DAILY RF: 0 lorazepam 0.5 mg tablet 0.5 mg PO HS RF: 0 simvastatin [Zocor] 10 mg tablet 10 mg PO DAILY RF: 0 Discharge Instructions Instructions: Diabetic Hyperglycemia (ED) Additional Instructions: Please keep your insulin pump turned off. You were given 10 units of short acting insulin here in the emergency department and then you were given 10 units of long-acting insulin here in the emergency department. Take short acting insulin (Humalog) 2 to 3 units with meals tomorrow. 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 Call tomorrow if you do not hear from them in the morning. If your urinary incontinence does not improve with improved blood sugar, please follow-up with urology. Please contact your primary care physician to arrange follow-up. Return to the ER for any worsening or new concerning symptoms. Referrals: Bertin Barney MD [ [facility] STAFF PHYSICIAN] - Evelyn Nevarez MD [Primary Care Provider] - Medical Decision Making 80-year-old female with history of insulin-dependent diabetes, on insulin pump, here with elevated blood sugar in the 400-500 range for the past 1 week, poor appetite with nausea. Patient also with urinary incontinence. Abdominal exam benign. Labs reviewed and no leukocytosis. Patient has hyperglycemia with blood sugar of 444 with no acidosis. Urinalysis is not consistent with UTI but does have significant glucose. Concern for insulin pump failure. Patient given 1 L crystalloid bolus and and NovoLog 10 units. She consumed a slice of bread with peanut butter. Repeat blood sugar was 319. I called and spoke with endocrinology at [facility], discussed ED presentation course, and they recommend turning off insulin pump, giving Lantus 10 units tonight and starting Humalog 2 to 3 units with meals tomorrow. They will speak with treating physician tomorrow and contact the patient to adjust pump and dosing further. Plan was discussed with patient who verbalized understanding and is able to perform dosing adjustment. HPI General Mode of arrival: ambulatory . Date/Time Provider Initiated Documentation: 10/11/20 18:16 . Limitations to Documentation: no limitations . Information obtained by: patient . HPI Narrative: 80-year-old female with insulin-dependent diabetes, on insulin pump, here with concern for hyperglycemia. Patient notes sugars have been elevated for the past 1 week. She notes she has been using her pump as prescribed. She is concerned about pump failure. Sugars been as high as the 400s. No modifiers. She also notes associated urinary incontinence. No dysuria or fever. Related Data Home Medications Medication Instructions Recorded Confirmed acetaminophen [Tylenol] 325 mg PO Q4H PRN tab-cap 03/12/13 10/11/20 aspirin [Aspirin Low-Strength] 81 mg PO DAILY tab.chew 03/12/13 10/11/20 vitamin B complex 1 ea PO DAILY 05/14/15 10/11/20 aluminum-mag hydroxide-simethicone 30 ml PO Q6H PRN ml 10/31/19 10/11/20 200 mg-200 mg-20 mg/5 mL oral susp ascorbate calcium (vitamin C) 500 500 mg PO DAILY 10/31/19 10/11/20 mg tablet blood sugar diagnostic #10 each 10/31/19 11/13/19 cholecalciferol (vitamin D3) 25 1,000 unit PO DAILY 10/31/19 10/11/20 mcg (1,000 unit) capsule insulin detemir U-100 100 unit/mL 6 unit SC QHS ml 10/31/19 10/11/20 subcutaneous solution insulin lispro 100 unit/mL 100 unit SUBCUT .PUMP 10/31/19 10/11/20 subcutaneous solution insulin syringe-needle U-100 0.5 #10 each 10/31/19 11/13/19 mL 29 gauge x 1/2 ketotifen fumarate 0.025 % (0.035 1 drp OP BID 10/31/19 10/11/20 %) eye drops lancets #50 each 10/31/19 11/13/19 levothyroxine 88 mcg tablet 88 mcg PO DAILY tab-cap 10/31/19 10/11/20 lorazepam 0.5 mg tablet 0.5 mg PO HS 10/31/19 10/11/20 losartan 25 mg tablet 50 mg PO DAILY tab-cap 10/31/19 10/11/20 polyethylene glycol 3350 17 17 gm PO QHS PRN gm 10/31/19 10/11/20 gram/dose oral powder sertraline 50 mg tablet 125 mg PO DAILY tab 10/31/19 10/11/20 simvastatin 10 mg tablet 10 mg PO DAILY tab-cap 10/31/19 10/11/20 Allergies Allergy/AdvReac Type Severity Reaction Status Date / Time demeclocycline Allergy Intermediate Verified 10/11/20 18:27 [From Declomycin] metronidazole Allergy Verified 10/11/20 18:27 amoxicillin trihydrate AdvReac Intermediate Nausea Verified 10/11/20 18:27 [From Augmentin] blue dye AdvReac Intermediate Uncomfortab Verified 10/11/20 18:27 le dicyclomine AdvReac Intermediate Headache Unverified 10/11/20 18:27 potassium clavulanate AdvReac Intermediate Nausea Verified 10/11/20 18:27 [From Augmentin] General Stated Complaint: Diabetes LASHELL: 3 Review of Systems All systems reviewed & are unremarkable except as noted in HPI and below Constitutional Constitutional: Denies fever(s) Gastrointestinal Gastrointestinal: Denies abdominal pain, Reports nausea and Denies vomiting Genitourinary Genitourinary: Reports as per HPI [facility] Medical History Abrasion of labia with infection 08/2019 treated with use of mupirocin 2%. Lesion healed at time of [facility] C visit 11/13/2019. KLAUDIA positive Anxiety with depression Basal cell carcinoma Cataract Depression Diabetes mellitus Dysphagia Gastroparesis diabeticorum Generalized degenerative joint disease of hand Hematuria, microscopic History of basal cell carcinoma (BCC) Hyperlipidemia Hypertension, essential, benign Hypothyroidism Macrocytosis Osteoporosis Preventative health care Tremor Tremor, essential Trochanteric bursitis, left hip Type 1 diabetes mellitus without complications Urgency incontinence Urinary incontinence Social History Smoking/Tobacco Use Status: Never Smoking risk assessment performed?: Yes Alcohol Intake: never Drug use: Never Substance use type: does not use Do you feel safe at home: Yes Do you feel safe in your relationship?: Yes Exam Const General: no acute distress and not diaphoretic Nutritional Appearance: thin Orientation: alert, awake and oriented x3 HENMT Mouth: moist mucous membranes Eyes Conjunctivae: normal conjunctivae Sclera: normal sclerae Resp Auscultation: clear to auscultation bilaterally, no rales, no rhonchi and no wheezes Cardio Rate: regular rate and not tachycardic Rhythm: regular rhythm GI Palpation: soft, not firm, no guarding, no masses, not rigid and nontender Skin General skin exam: no rashes or lesions noted Neuro General: patient alert, patient awake and tone normal Extrem General: no edema Psych Appearance: grossly normal Mental Status: mental status grossly normal Course Vital Signs Vital signs: Vital Signs Temperature 36.5 C 10/11/20 18:16 Pulse 72 10/11/20 18:16 Respiratory Rate 20 10/11/20 18:16 Blood Pressure 130/66 10/11/20 18:16 Pulse Oximetry 100 10/11/20 18:16 Temperature 36.5 C 12/28/20 18:16 Temperature Source Skin 10/11/20 18:16 Pulse 72 10/11/20 18:16 Respiratory Rate 20 10/11/20 18:16 Respiratory Effort Non-Labored 10/11/20 18:29 Blood Pressure 130/66 10/11/20 18:16 Blood Pressure Position Sitting 10/11/20 18:16 Pulse Oximetry 100 10/11/20 18:16 Oxygen Delivery Method Room Air 10/11/20 18:16 Oxygen Flow Rate 0 10/11/20 18:16 Pain Level 0 10/11/20 18:16 Lab/Test Results Lab/Test Results: Laboratory Tests Range/Units 10/11/20 10/11/20 10/11/20 18:40 18:40 19:45 WBC (4.4-10.8) 10^3/uL 6.71 RBC (3.93-5.22) 10^6/uL 3.66 L Hgb (11.2-15.7) g/dL 12.4 Hct (36.0-46.0) % 36.0 MCV (80-95) fL 98.4 H MCH (27.0-33.0) pg 33.9 H MCHC (32.0-36.0) % 34.4 RDW (11.7-14.6) % 11.9 Plt Count (130-400) 10^3/uL 202 MPV (8.0-11.0) fL 10.8 Immature Gran % 0.3 Neutrophils % 76.2 Lymphocytes % 17.4 Monocytes % 5.7 Eosinophils % 0.3 Basophils % 0.1 Nucleated RBC % % 0 Absolute Neutrophils (1.2-6.7) 10^3/uL 5.11 Absolute Lymphocytes (1.2-3.4) 10^3/uL 1.17 L Absolute Monocytes (0.1-0.8) 10^3/uL 0.38 Absolute Eosinophils (0.0-0.7) 10^3/uL 0.02 Absolute Basophils (0.0-0.2) 10^3/uL 0.01 Sodium (136-145) mmol/L 130 L Potassium (3.5-5.1) mmol/L 3.9 Chloride (98-107) mmol/L 94 L Carbon Dioxide (21.0-32.0) mmol/L 29.7 Anion Gap (3-11) mmol/L 6.3 BUN (7-18) mg/dL 28 H Creatinine (0.55-1.02) mg/dL 1.09 H Estimated GFR/1.73 m2 (mL/min/1.73m2) 48.42 Glucose (74-106) mg/dL 441 H Calcium (8.5-10.1) mg/dL 8.9 Total Bilirubin (0.2-1.0) mg/dL 0.3 AST (15-37) U/L 22 ALT (14-59) U/L 27 Alkaline Phosphatase (46-116) U/L 140 H Total Protein (6.4-8.2) g/dL 6.9 Albumin (3.4-5.0) g/dL 3.8 Urine Color (Yellow) Yellow Urine Clarity (Clear) Clear Urine pH (5-8) 7.0 Ur Specific Mcbrides (1.005-1.025) 1.020 Urine Protein (Negative) mg/dL Negative Urine Ketones (Negative) mg/dL Negative Urine Blood (Negative) Trace-intact H Urine Nitrite (Negative) Negative Urine Bilirubin (Negative) Negative Urine Urobilinogen (Up TO 0.2) EU/dL 0.2 Ur Leukocyte Esterase (Negative) Negative Urine RBC (0-2) HPF 0-2 Urine WBC (0-5) HPF 3-5 Ur Epithelial Cells (Negative) HPF Few Urine Crystals (Negative) HPF Negative Urine Bacteria (Negative) HPF Negative Urine Casts (Negative) LPF Negative Urine Mucus (Negative) Negative Ur Culture Indicated? No Urine Glucose (Negative) mg/dL 500 H
[2020-10-11 20:58] VITALS: BP 104/68; PULSE 68; RESP 16; O2SAT 100
[2020-10-11 21:20] VITALS: BP 116/57; PULSE 67; RESP 16; O2SAT 99
[2020-10-11] MEDS: Insulin Glargine 100 UNITS/ML UNIT 10 UNITS SC (21:56)
--- NOTE | 2020-10-12 08:05 | NUR.NOTE ---
referal to care managment for help with servicesNursing Note:
== END 2020-10-11 22:00 | disposition home or self-care (01) ==
PROVIDERS: Emergency Provider Student in an Organized Health Care Education/Training Program; PCP Family Medicine
DX: E10.65 Type 1 diabetes mellitus with hyperglycemia (principal); R32 Unspecified urinary incontinence; T85.694A Other mechanical complication of insulin pump, initial encounter; Z96.41 Presence of insulin pump (external) (internal); I10 Essential (primary) hypertension
CPT/HCPCS: 36415; 36416; 80053; 82962; 96360; 96372; 99284; 81003; 81015; 85025; J1815

== ENCOUNTER 2020-10-12 15:22 | Emergency (ER) | payer BC, SELFPAY ==
--- OUTSIDE RECORDS SUMMARY | 2020-10-12 15:34 | XMS_ITS ---
:1940 Author Care Team Providers Name Role Phone DR. CRISTINA GARCIA Primary Care Provider [phone] DR. CRISTINA GARCIA Referring Provider [phone] Allergies Code Code System Name Reaction Severity Status Onset 485025 RxNorm Augmentin Nausea Severe Active ? Vomiting Severe Active ? Blue Dye Rash Severe Active ? Declomycin Headache Severe Active ? 20280320 RxNorm Flagyl ? ? Active ? Medications Name Status Start Date Stop Date ? ? Alaway 0.025 % (0.035 %) eye drops Active ? Not available INSTILL 1 DROP INTO AFFECTED EYE(S) BY OPHTHALMIC ROUTE 2 TIMES PER DAY Align Completed ? 02/04/2019 take one cap daily Aspir-Low 81 mg tablet,delayed release Active ? Not available Take 1 tablet every day by oral route. azithromycin 250 mg tablet Completed ? 02/04 BD Insulin Syringe Ultra-Fine 0.5 mL 30 Active ? Not available gauge x 1/2 BD SafetyGlide Insulin Syringe 0.5 mL 29 gauge x 1/2 Active ? Not available use as directed Calcium 500 500 mg calcium (1,250 mg) tablet Active ? Not available Take 6 tablets every day by oral route. Contour Next Test Strips Active ? Not ewa ilable Contour Next Test Strips Active ? Not ewa ilable test 6-8 times daily erythromycin 5 mg/gram (0.5 %) eye Completed ? 02/04/2019 ointment Eye Drops(tetrahydroz-zn sulf) Active ? N ot available four times daily Flonase 50 mcg/Actuation nasl susp Completed ? 02/04/2019 Inhale 2 sprays every day by intranasal route. Fungoid Tincture 2 % topical Active ? Not available APPLY A THIN LAYER TO THE AFFECTED AREA (S) BY TOPICAL ROUTE 2 TIMES PER DAY IN THE MORNING AND EVENING apply 2x daily to affected area. Humalog U-100 Insulin 100 unit/mL subcutaneous solution Active ? Not available Inject by subcutaneous route. Levemir U-100 Insulin 100 unit/mL subcutaneous solution Active ? Not available Inject 6 units every day by subcutaneous route at bedtime. lorazepam 0.5 mg tablet Active ? Not avai lable Take 1 tablet as needed by oral route. losartan 25 mg tablet Active ? Not availa ble Miralax 17 gram/dose oral powder Active ? Not available Take by oral route. mometasone 0.1 % topical cream Active ? N ot available Mylanta 200 mg-200 mg-20 mg chewable tablet Active ? Not available Take by oral route. omeprazole 20 mg capsule,delayed release Active ? Not available Take 1 capsule every day by oral route. omeprazole 40 mg capsule,delayed Active ? Not available release One Touch UltraSoft Lancets Active ? Not available use as directed OneTouch UltraSoft Lancets Active ? Not a vailable Synthroid 88 mcg tablet Active ? Not avai lable Take 1 tablet every day by oral route. Temovate 0.05 % topical ointment Active ? Not available APPLY A THIN LAYER TO THE AFFECTED AREA(S) BY TOPICAL ROUTE 2 T IMES PER DAY vitamin B complex Active ? Not available one tab po daily Vitamin D Active ? Not available 500 MG DAILY Zocor 10 mg tablet Active ? Not available Take 1 tablet every day by oral route. Zoloft 50 mg tablet Active ? Not availabl e Take 1 tablet every day by oral route. Problems Name Status Onset Date Source ? Basal Cell Carcinoma of Skin Active 07/05/2016 ? Hypothyroidism Active 07/05/2016 ? Type 1 Diabetes Mellitus Active 07/05/2016 ? Diabetic Gastroparesis Active 07/05/2016 ? Hyperlipidemia Active 07/05/2016 ? Anxiety Active 07/05/2016 ? Depressive Disorder Active 07/05/2016 ? Cataract Active 07/05/2016 ? Impacted Cerumen Active 07/05/2016 ? Hypertensive Disorder Active 07/05/2016 ? Microscopic Hematuria Active 07/05/2016 ? Chronic Urticaria Active 07/05/2016 ? Osteoporosis Active 07/05/2016 ? Tremor Active 07/05/2016 ? Dysphagia Active 07/05/2016 ? Macrocytosis Active 07/05/2016 ? Medication Monitoring Active 07/05/2016 ? Notes: KLAUDIA positive test Procedures None recorded. Results Lab Results None recorded. Past Encounters None recorded. Social History Tobacco Smoking Status Never Smoker Notes: 02/04/19 Vaccine List Vaccine Type Tdap 01/27/2013 Plan of Care Reminders Provider Appointments None ? ? recorded. Lab None ? ? recorded. Referral None ? ? recorded. Procedures None ? ? recorded. Surgeries None ? ? recorded. Imaging None ? ? recorded. Vitals 02/04/2019 10:15AM PODIATRY FOLLOW UP Weight Blood Pressure 43.09 kg 138/54 mm[Hg] 08/21/2016 09:30AM PODIATRY NEW PATIENT Weight Blood Pressure 43.09 kg 124/56 mm[Hg]
[2020-10-12 15:43] VITALS: BP 155/63; PULSE 75; RESP 16; TEMP 36.5; O2SAT 100
--- NOTE | 2020-10-12 16:01 | ED.GENADUL_ITS ---
Discharge Plan Disposition Patient Disposition: HOME Condition: Good Discharge Details Clinical Impression: Diarrhea, Hypokalemia Primary Care Provider: Evelyn Nevarez ED Provider: Elizabeth Lopez Home Meds and New Rx's Prescriptions: Continued acetaminophen [Tylenol] 325 MG tablet 325 mg PO Q4H PRN RF: 0 aspirin [Aspirin Low-Strength] 81 MG tablet,chewable 81 mg PO DAILY RF: 0 vitamin B complex 1 EACH capsule 1 ea PO DAILY RF: 0 (DME) insulin syringe-needle U-100 [BD Insulin Syringe] 0.5 mL 29 gauge x 1/2 syringe See Rx Instructions .ROUTE .MEDSUPPLY Qty: 10 RF: 0 (DME) lancets [OneTouch UltraSoft Lancets] Misc See Rx Instructions .ROUTE .MEDSUPPLY Qty: 50 RF: 0 (DME) Contour Next Test Strips Strip See Rx Instructions .ROUTE .MEDSUPPLY Qty: 10 RF: 0 ketotifen fumarate [Alaway] 0.025 % (0.035 %) drops 1 drp OP BID RF: 0 ascorbate calcium (vitamin C) 500 mg tablet 500 mg PO DAILY RF: 0 polyethylene glycol 3350 [Miralax] 17 gram/dose powder 17 gm PO QHS PRNRF: 0 alum-mag hydroxide-simeth 200-200-20 mg/5 mL suspension 30 ml PO Q6H PRNRF: 0 sertraline 50 mg tablet 125 mg PO DAILY RF: 0 losartan 25 mg tablet 50 mg PO DAILY RF: 0 cholecalciferol (vitamin D3) [Vitamin D3] 25 mcg (1,000 unit) capsule 1,000 unit PO DAILY RF: 0 insulin lispro [Humalog U-100 Insulin] 100 unit/mL solution 100 unit subcut .PUMP RF: 0 levothyroxine [Synthroid] 88 mcg tablet 88 mcg PO DAILY RF: 0 lorazepam 0.5 mg tablet 0.5 mg PO HS RF: 0 simvastatin [Zocor] 10 mg tablet 10 mg PO DAILY RF: 0 Discharge Instructions Instructions: Hypokalemia (ED), Acute Diarrhea (ED) Additional Instructions: You diarrhea has improved with your home regimen of Immodium. You may continue with this if needed, please take as directed on the bottle. Your labs show slightly low potassium, this was replaced here. Your long acting and short acting insulin has been called in, as planned by endocrine at [facility], to [facility] in [place]. Stop your insulin pump and take these as directed. You will need follow up with your primary care. Please call tomorrow to schedule appointment in the next 1-2 weeks. Care management has helped arrange center on aging and meals on wheels. If you develop fevers/chills, inability to stay hydrated, have blood in your stool, weakness, or other new/worsening symptoms please seek care urgently once again. Referrals: Evelyn Nevarez MD [Primary Care Provider] - Discharge Data Discharge Date/Time-TO BE ENTERED AT DEPARTURE: 10/12/20 18:54 Medical Decision Making Patient is a pleasant 80 year old female presenting today with c/c of diarrhea. States this began shortly after her d/c from the ED yesterday. She states that she had multiple soft BM last night, slept well and then noted recurrence throughout the day today. She was seen here yesterday fro DM, please see Dr. Bell's note. She states she was in contact with endocrine today. Her glucose has been in the 200s. She denies any abdominal pain. No blood or melena. No change in urinary habits, states she can occassionally be incontinent but states that this is not new. She states she often has constipation or diarrhea but that this is more frequent than she has experienced historically. Unclear how many BM today. No recent travel. No known sick contacts. No change in diet. No recent abx. On exam, she appears comfortable and nontoxic. Abdomen benign. Plan for evaluation of potential electrolyte abnormality. Will give hydration. She states she took immodium just prior to arrival, unclear if this has had an affect. Exam and history is not consistent with acute abdomen or surgical pathology. Labs reviewed. No leukocytosis, stable H&H. Na low but improved from yesterday at 133. K is 3.2. Glucose 152. Alk phos 151, she has been elevated historically. She has had no BM since being here, is eating and drinking feels well. We had care management speak with the patient. She expresses social stressors, in particulr around money and being able to afford food. Reviewed note from [facility], patient states she spoke with them today but did not get the refill she needed. I reviewed notes, they had sent in prescriptio for Lantus Solostar U-100 Insulin pen. Doscing is 10U QD dispense 6mL. This was sent to mail in pharmacy. As she needs this more quickly, called this same prescription into [facility] in [place] at patients request. Unclear what the short acting was. Did not see this on the chart. Spoke with Dr. Amaya at [facility] endocrinology who will call in a short acting to [place]. Patient has been set up with meals on wheels, [facility]. She has had no BM. she states that she is ready tor D/C. She was given return precautions. I have asked tht she follow up closely with PCP. All of her questions and concerns were addressed, she is in agreement with this plan. HPI General Mode of arrival: ambulatory . Date/Time Provider Initiated Documentation: 10/12/20 15:28 . Limitations to Documentation: no limitations . Information obtained by: patient, RN notes reviewed and old records reviewed . History of Present Illness 80 year old F presents to the emergency department with the chief complaint of diarrhea, described as moderate and similar to prior episodes (states she often has constipation or diarrhea), with intensity rated at 1 (denies any pain). and is localized to the abdomen. Patient reports no radiation. Patient started experiencing this day(s) (began last night) and it has been constant. No relieving factors improve symptom(s), No exacerbating factors reported . Patient notes denies chest pain, cough, diaphoresis, fever/chills, loss of appetite, malaise, nausea/vomiting, rash, shortness of breath and weakness. Patient did receive the following treatments prior to arrival, other (took immodium just prior to arrival) Related Data Home Medications Medication Instructions Recorded Confirmed acetaminophen [Tylenol] 325 mg PO Q4H PRN tab-cap 03/12/13 10/12/20 aspirin [Aspirin Low-Strength] 81 mg PO DAILY tab.chew 03/12/13 10/12/20 vitamin B complex 1 ea PO DAILY 05/14/15 10/12/20 aluminum-mag hydroxide-simethicone 30 ml PO Q6H PRN ml 10/31/19 10/12/20 200 mg-200 mg-20 mg/5 mL oral susp ascorbate calcium (vitamin C) 500 500 mg PO DAILY 10/31/19 10/12/20 mg tablet blood sugar diagnostic #10 each 10/31/19 11/13/19 cholecalciferol (vitamin D3) 25 1,000 unit PO DAILY 10/31/19 10/12/20 mcg (1,000 unit) capsule insulin lispro 100 unit/mL 100 unit SUBCUT .PUMP 10/31/19 10/12/20 subcutaneous solution insulin syringe-needle U-100 0.5 #10 each 10/31/19 11/13/19 mL 29 gauge x 1/2 ketotifen fumarate 0.025 % (0.035 1 drp OP BID 10/31/19 10/12/20 %) eye drops lancets #50 each 10/31/19 11/13/19 levothyroxine 88 mcg tablet 88 mcg PO DAILY tab-cap 10/31/19 10/12/20 lorazepam 0.5 mg tablet 0.5 mg PO HS 10/31/19 10/12/20 losartan 25 mg tablet 50 mg PO DAILY tab-cap 10/31/19 10/12/20 polyethylene glycol 3350 17 17 gm PO QHS PRN gm 10/31/19 10/12/20 gram/dose oral powder sertraline 50 mg tablet 125 mg PO DAILY tab 10/31/19 10/12/20 simvastatin 10 mg tablet 10 mg PO DAILY tab-cap 10/31/19 10/12/20 Allergies Allergy/AdvReac Type Severity Reaction Status Date / Time demeclocycline Allergy Intermediate Verified 10/12/20 15:53 [From Declomycin] metronidazole Allergy Verified 10/12/20 15:53 amoxicillin trihydrate AdvReac Intermediate Nausea Verified 10/12/20 15:53 [From Augmentin] blue dye AdvReac Intermediate Uncomfortab Verified 10/12/20 15:53 le dicyclomine AdvReac Intermediate Headache Unverified 10/12/20 15:53 potassium clavulanate AdvReac Intermediate Nausea Verified 10/12/20 15:53 [From Augmentin] General Stated Complaint: Nausea/Vomit/Diar LASHELL: 3 Review of Systems Constitutional Constitutional: Reports as per HPI, Denies chills, Denies fatigue, Denies fever(s) and Denies headache(s) ENT Ears, Nose, Mouth, and Throat: Denies headache(s) Cardiovascular Cardiovascular: Reports as per HPI, Denies chest pain and Denies dyspnea Respiratory Respiratory: Reports as per HPI, Denies cough and Denies dyspnea Gastrointestinal Gastrointestinal: Reports as per HPI Musculoskeletal Musculoskeletal: Reports as per HPI and Denies back pain Integumentary/Breasts Skin/Breast: Reports as per HPI and Denies rash Neurologic Neurologic: Reports as per HPI and Denies headache(s) Endocrine Endocrine: Denies fatigue [facility] Medical History Abrasion of labia with infection 08/2019 treated with use of mupirocin 2%. Lesion healed at time of [facility] visit 11/13/2019. KLAUDIA positive Anxiety with depression Basal cell carcinoma Cataract Depression Diabetes mellitus Dysphagia Gastroparesis diabeticorum Generalized degenerative joint disease of hand Hematuria, microscopic History of basal cell carcinoma (BCC) Hyperlipidemia Hypertension, essential, benign Hypothyroidism Macrocytosis Osteoporosis Preventative health care Tremor Tremor, essential Trochanteric bursitis, left hip Type 1 diabetes mellitus without complications Urgency incontinence Urinary incontinence Social History Smoking/Tobacco Use Status: Never Smoking risk assessment performed?: Yes Alcohol Intake: never Drug use: Never Substance use type: does not use Do you feel safe at home: Yes Do you feel safe in your relationship?: Yes Exam Const General: cooperative, healthy appearing, comfortable, no acute distress, well developed and anxious Nutritional Appearance: average body habitus and well nourished Orientation: alert and awake [facility] Head: normal to inspection Mouth: moist mucous membranes Resp Effort & Inspection: normal respiratory effort, able to speak in complete sentences and no respiratory distress Auscultation: clear to auscultation bilaterally, no rales, no rhonchi and no wheezes Cardio Rate: regular rate Rhythm: regular rhythm Heart Sounds: S1 normal and S2 normal GI Inspection: normal to inspection, non-distended, no visible herniation and no visible pulsation Palpation: soft, no hepatosplenomegaly, no guarding, no pulsatile masses, not rigid and nontender Percussion: normal to percussion Auscultation: normal bowel sounds Back/Spine/Pelvis Back: no CVA tenderness Skin General skin exam: no rashes or lesions noted Trauma: no lacerations or abrasions Neuro General: patient alert and patient awake Cognition: normal cognition Speech: speech normal Gait: normal gait Psych Appearance: grossly normal and well kempt Mental Status: mental status grossly normal Speech and Movement: speech and movement normal Course Vital Signs Vital signs: Vital Signs Temperature 36.5 C 10/12/20 15:43 Pulse 75 10/12/20 15:43 Respiratory Rate 16 10/12/20 15:43 Blood Pressure 155/63 H 10/12/20 15:43 Pulse Oximetry 100 10/12/20 15:43 Temperature 36.5 C 10/12/20 15:43 Temperature Source Skin 10/12/20 15:43 Pulse 75 10/12/20 15:43 Respiratory Rate 16 10/12/20 15:43 Respiratory Effort Non-Labored 10/12/20 15:51 Blood Pressure 155/63 H 10/12/20 15:43 Blood Pressure Position Sitting 10/12/20 15:43 Pulse Oximetry 100 10/12/20 15:43 Oxygen Delivery Method Room Air 10/12/20 15:43 Oxygen Flow Rate 0 10/12/20 15:43 Pain Level 3 10/12/20 15:43 Comment 10/12/20 15:43
[2020-10-12 16:31] LABS: Abs Immature Grans 0.01 10^3/uL (0.0-0.06); Absolute Basophil Count 0.01 10^3/uL (0.0-0.2); Absolute Eosinophil Count 0.03 10^3/uL (0.0-0.7); Absolute Lymphocyte Count 1.65 10^3/uL (1.2-3.4); Absolute Neutrophil Count 3.86 10^3/uL (1.2-6.7); Basophils % 0.2; Eosinophils % 0.5; HCT 39.4 % (36.0-46.0); HGB 13.3 g/dL (11.2-15.7); Immature Grans % 0.2; Lymphocytes % 27.7; MCH 33.2 pg (27.0-33.0); MCHC 33.8 % (32.0-36.0); MCV 98.3 fL (80-95); MPV 10.7 fL (8.0-11.0); Monocytes % 6.7; Neutrophils % 64.7; Nucleated RBC 0 %; Platelet Count 227 10^3/uL (130-400); RBC 4.01 10^6/uL (3.93-5.22); RDW 12.1 % (11.7-14.6); RDW-SD 44.2 fL; WBC 5.96 10^3/uL (4.4-10.8)
[2020-10-12 16:31] LABS: Bilirubin Negative (Negative); Blood Small (Negative); Clarity Clear (Clear); Glucose Negative (Negative); Ketones Negative (Negative); Leukocyte Esterase Negative (Negative); Nitrite Negative (Negative); Urobilinogen 0.2 EU/dL (Up TO 0.2)
[2020-10-12] MEDS: Normal Saline 1,000 ML 150 ML IV (16:39)
[2020-10-12] MEDS: Normal Saline Flush 10 ML SYR IVP (16:39)
[2020-10-12 16:44] LABS: ALT 34 U/L (14-59); AST 29 U/L (15-37); Albumin 4.5 g/dL (3.4-5.0); Alkaline Phosphatase 151 U/L (46-116); BUN 18 mg/dL (7-18); Bilirubin, Total 0.3 mg/dL (0.2-1.0); CREATININE 0.85 mg/dL (0.55-1.02); Calcium 9.3 mg/dL (8.5-10.1); Chloride 96 mmol/L (98-107); Glucose 152 mg/dL (74-106); Magnesium 1.8 mg/dL (1.8-2.4); Potassium 3.2 mmol/L (3.5-5.1); Sodium 133 mmol/L (136-145); Total Protein 8.2 g/dL (6.4-8.2)
[2020-10-12 16:46] LABS: Bacteria Negative HPF (Negative); C & S Indicated? No; Crystals Negative HPF (Negative); Epithelial Cells Rare HPF (Negative); Mucus Negative (Negative); RBC 0-2 HPF (0-2); WBC 0-2 HPF (0-5)
[2020-10-12] MEDS: POTASSIUM CHLORIDE 20 MEQ, POTASSIUM CHLORIDE 10 MEQ 30 MEQ PO (18:28)
== END 2020-10-12 18:54 | disposition home or self-care (01) ==
PROVIDERS: Emergency Provider Physician Assistant; PCP Family Medicine
DX: R19.7 Diarrhea, unspecified (principal); E87.6 Hypokalemia; E10.9 Type 1 diabetes mellitus without complications; I10 Essential (primary) hypertension
CPT/HCPCS: 36415; 80053; 96360; 96361; 99284; 81003; 81015; 83735; 85025

== ENCOUNTER 2020-11-10 01:39 | Outpatient (CLI) | payer BC, SELFPAY ==
--- NOTE | 2020-11-10 08:34 | DI.MAMMO_ITS ---
EXAM: MAMMO SCREENING CLINICAL HISTORY: SCREENING, Z12.31 TECHNIQUE: Mammograms were interpreted according to the usual protocol including computer analysis w [employer] CAD system, tomosynthesis and C-view imaging. COMPARISON: 2010 through 2017 FINDINGS: The breasts are composed of heterogeneously dense fibroglandular densities, Breast Density category C . No suspicious masses or suspicious microcalcifications are seen. Vascular calcifications are inciden tally noted. No skin thickening or abnormal axillary lymph nodes are seen. There has been no significant change from prior exams. IMPRESSION: BI-RADS Category 1, Negative mammogram. Yearly screening mammography is recommended. Breast Density Category C, heterogeneously Dense. The mammogram demonstrates the patient's breast tissue is dense. Dense breast tissue is very common a nd is not abnormal but dense breast tissue can make it harder to find cancer on a mammogram. Also, de nse breast tissue may increase breast cancer risk. This information about the result of the mammogram report was provided to the patient to raise their awareness. Use this report when you speak with the patient about their risks for breast cancer, which includes their family history. At that time, you may recommend additional screening tests (Ultrasound or MRI) as they might be useful based on their r isk. A negative radiographic report should not delay biopsy if a dominant or clinically suspicious mass is present. Up to ten percent of cancers are not identified on mammography. A negative report may reinforce clinical impression. Adenosis and dense breasts may obscure an underlying neoplasm. False positive reports average 6 to 10%.
== END 2020-11-10 01:59 ==
PROVIDERS: PCP Family Medicine; Visit Provider Family Medicine
DX: Z12.31 Encounter for screening mammogram for malignant neoplasm of breast (principal)
CPT/HCPCS: 77063; 77067

== ENCOUNTER 2021-02-07 04:10 | Observation (INO) | payer BC, SELFPAY ==
[2021-02-07] VITALS (27 sets, daily range): BP systolic 108–160; BP diastolic 45–66; PULSE 58–81; RESP 6–19; TEMP 33.1–36.8; O2SAT 95–100
--- NOTE | 2021-02-07 04:10 | W.ED.GENAD ---
Discharge Plan Disposition Patient Disposition: [facility] INPATIENT Condition: Fair Discharge Details Clinical Impression: Hypoglycemia, Hypothermia Primary Care Provider: Evelyn Nevarez ED Provider: Osmin Spence [place] Meds and New Rx's Prescriptions: No Action acetaminophen [Tylenol] 325 MG tablet 325 mg PO Q4H PRN RF: 0 aspirin [Aspirin Low-Strength] 81 MG tablet,chewable 81 mg PO DAILY RF: 0 vitamin B complex 1 EACH capsule 1 ea PO DAILY RF: 0 (DME) insulin syringe-needle U-100 [BD Insulin Syringe] 0.5 mL 29 gauge x 1/2 syringe See Rx Instructions .ROUTE .MEDSUPPLY Qty: 10 RF: 0 (DME) lancets [OneTouch UltraSoft Lancets] Misc See Rx Instructions .ROUTE .MEDSUPPLY Qty: 50 RF: 0 (DME) Contour Next Test Strips Strip See Rx Instructions .ROUTE .MEDSUPPLY Qty: 10 RF: 0 ketotifen fumarate [Alaway] 0.025 % (0.035 %) drops 1 drp OP BID RF: 0 ascorbate calcium (vitamin C) 500 mg tablet 500 mg PO DAILY RF: 0 polyethylene glycol 3350 [Miralax] 17 gram/dose powder 17 gm PO QHS PRNRF: 0 alum-mag hydroxide-simeth 200-200-20 mg/5 mL suspension 30 ml PO Q6H PRNRF: 0 sertraline 50 mg tablet 125 mg PO DAILY RF: 0 losartan 25 mg tablet 50 mg PO DAILY RF: 0 cholecalciferol (vitamin D3) [Vitamin D3] 25 mcg (1,000 unit) capsule 1,000 unit PO DAILY RF: 0 insulin lispro [Humalog U-100 Insulin] 100 unit/mL solution 100 unit subcut .PUMP RF: 0 levothyroxine [Synthroid] 88 mcg tablet 88 mcg PO DAILY RF: 0 lorazepam 0.5 mg tablet 0.5 mg PO HS RF: 0 simvastatin [Zocor] 10 mg tablet 10 mg PO DAILY RF: 0 Lantus Solostar U-100 Insulin 100 unit/mL (3 mL) insulin pen 7 unit SUBCUT QAM RF: 0 Medical Decision Making Patient found to have a rectal temp of 91.5. Bear hugger applied. Fluids continued. Laboratory studies, CT head, chest x-ray, urinalysis ordered. Matthews placed to monitor urine output given mottled appearance and hypothermia. Heart rate and blood pressure good. Laboratory studies for the most part unremarkable. Glucose 226 after the D10 by EMS. Troponin negative. Liver function normal. Urinalysis negative for infection. Head CT with nothing acute. Chest x-ray clear. Repeat fingerstick 143. Given the patient's significant hypothermia and no evidence of infection would presume temperature related to prolonged episode of hypoglycemia. Sounds like she had a similar yet less intense event earlier in the week. Given this and given her hypothermia case discussed with hospitalist for observation admission. May need adjustment of insulin dosing. Lab Data Lab results reviewed: Yes I reviewed the patient's lab results. ECG Data Attestation: I personally reviewed and interpreted this ECG (s) as follows: Prior ECG tracings: not available for review Interpretation: See EKG HPI General Mode of arrival: EMS. Date/Time Provider Initiated Documentation: 02/07/21 05:41. Limitations to Documentation: altered mental status. Information obtained by: patient, family, EMS and RN notes reviewed. HPI Narrative: Patient presents to ED by ambulance after episode of altered mental status. Patient found to be hypoglycemic by EMS. Was too altered to be given anything orally. IV established and D10 given. Patient arrives here awake and appropriate. She has nausea but denies headache, chest pain, shortness of breath, abdominal pain. She has not been ill. She no longer is on an insulin pump. She does still take insulin. Per the , whom I interviewed later, he woke with the patient confused trying to crawl over him. She was completely incoherent. He reports similar yet less intense episode last week. He also reports that she was cold at that time and when he took her temperature was 95.7 Related Data Home Medications Medication Instructions Recorded Confirmed acetaminophen [Tylenol] 325 mg PO Q4H PRN tab-cap 03/12/13 02/07/21 aspirin [Aspirin Low-Strength] 81 mg PO DAILY tab.chew 03/12/13 02/07/21 vitamin B complex 1 ea PO DAILY 05/14/15 02/07/21 aluminum-mag hydroxide-simethicone 30 ml PO Q6H PRN ml 10/31/19 02/07/21 200 mg-200 mg-20 mg/5 mL oral susp ascorbate calcium (vitamin C) 500 500 mg PO DAILY 10/31/19 02/07/21 mg tablet blood sugar diagnostic #10 each 10/31/19 11/10/20 cholecalciferol (vitamin D3) 25 1,000 unit PO DAILY 10/31/19 02/07/21 mcg (1,000 unit) capsule insulin lispro 100 unit/mL 100 unit SUBCUT .PUMP 10/31/19 02/07/21 subcutaneous solution insulin syringe-needle U-100 0.5 #10 each 10/31/19 11/10/20 mL 29 gauge x 1/2 ketotifen fumarate 0.025 % (0.035 1 drp OP BID 10/31/19 02/07/21 %) eye drops lancets #50 each 10/31/19 11/10/20 levothyroxine 88 mcg tablet 88 mcg PO DAILY tab-cap 10/31/19 02/07/21 lorazepam 0.5 mg tablet 0.5 mg PO HS 10/31/19 02/07/21 losartan 25 mg tablet 50 mg PO DAILY tab-cap 10/31/19 02/07/21 polyethylene glycol 3350 17 17 gm PO QHS PRN gm 10/31/19 02/07/21 gram/dose oral powder sertraline 50 mg tablet 125 mg PO DAILY tab 10/31/19 02/07/21 simvastatin 10 mg tablet 10 mg PO DAILY tab-cap 10/31/19 02/07/21 insulin glargine [Lantus Solostar 7 unit SUBCUT QAM 02/07/21 02/07/21 U-100 Insulin] Allergies Allergy/AdvReac Type Severity Reaction Status Date / Time demeclocycline Allergy Intermediate Verified 02/07/21 05:07 [From Declomycin] metronidazole Allergy Verified 02/07/21 05:07 amoxicillin trihydrate AdvReac Intermediate Nausea Verified 02/07/21 05:07 [From Augmentin] blue dye AdvReac Intermediate Uncomfortab Verified 02/07/21 05:07 le dicyclomine AdvReac Intermediate Headache Unverified 02/07/21 05:07 potassium clavulanate AdvReac Intermediate Nausea Verified 02/07/21 05:07 [From Augmentin] General LASHELL: 3 Review of Systems Narrative: 07/28 Review of Systems completed and is negative except as stated above in HPI (Systems reviewed: Const, Eyes, ENT, Resp, CV, GI, , MSK, Skin, Neuro) FORMERLY [facility], [facility]–1983 Medical History (Updated 02/07/21 @ 05:58 by Osmin Spence MD) Abrasion of labia with infection 08/2019 treated with use of mupirocin 2%. Lesion healed at time of [facility] visit 11/13/2019. KLAUDIA positive Anxiety with depression Basal cell carcinoma Cataract Depression Diabetes mellitus Dysphagia Gastroparesis diabeticorum Generalized degenerative joint disease of hand Hematuria, microscopic History of basal cell carcinoma (BCC) Hyperlipidemia Hypertension, essential, benign Hypothyroidism Macrocytosis Osteoporosis Preventative health care Tremor Tremor, essential Trochanteric bursitis, left hip Type 1 diabetes mellitus without complications Urgency incontinence Urinary incontinence Surgical History History of lymph node dissection of axilla Social History Smoking/Tobacco Use Status: Never Smoking risk assessment performed?: Yes Alcohol Intake: never Drug use: Never Substance use type: does not use Do you feel safe at home: Yes Do you feel safe in your relationship?: Yes Exam Narrative Exam Narrative: Const: Thin elderly female in NAD. HEENT: NC/AT. Normal facial exam. Eyes: Normal conjunctiva and sclera. Neck: Supple. Trachea midline. Lungs: Normal respiratory effort. Lungs are clear. Cor: RRR without murmur/gallop. Good radial pulses. GI: Soft. NT/ND. No guarding or rebound. Neuro: A+O x 3. Normal speech, mentation. Tremor present. Cranial nerves II - XII grossly intact. No gross motor or sensory deficit. Ext: No C/C/E. Skin: Cold and mottled.
--- NOTE | 2021-02-07 04:15 | DI.RAD_ITS ---
EXAM: XR CHEST 2V PA LATERAL CLINICAL HISTORY: altered mental status. TECHNIQUE: 2D digital imaging was performed. COMPARISON: Prior chest x-ray 12/13/2016 FINDINGS: Heart size is normal. The mediastinum is not widened. Increased interstitial markings again noted but no new infiltrates. No pleural effusions. No pulmon kendrick edema. Chest leads in place IMPRESSION: No acute pulmonary findings. DATA REPOSITORY: RADIATION DOSE DELIVERED:
--- NOTE | 2021-02-07 04:15 | RT.EKG_ITS ---
APPROVED REPORT Exam: Resting ECG Patient Location: E HR:65 bpm ECG Measurements Heart Rate 65 AXIS OR 159 P -61 QRSd 84 QRS -19 QT 468 T 75 QTc 488 Conclusion Sinus or ectopic atrial rhythm...P axis (-45,135) Anterior infarct, old...Q >40mS, abnormal ST-T, V2-V5 No STEMI or acute ST changes
--- NOTE | 2021-02-07 04:15 | DI.CT_ITS ---
EXAM: CT HEAD WO CLINICAL HISTORY: altered mental status. TECHNIQUE: Imaging Protocol: Axial computed tomography images with coronal and sagittal reformatted images were created and reviewed COMPARISON: No exams were available for comparison FINDINGS: There are no skull fractures nor fluid in the visualized paranasal sinuses. There is no evidence of intracranial hemorrhage, mass effect, or shift of midline structures. There are no extra-axial fluid collections. The ventricles are not enlarged or shifted and there is no blo od within the ventricular system nor within the basal cisterns. There is bilateral periventricular periventricular hypodensity consistent with chronic small vessel d isease. Also small 3 x 3 millimeter nonhemorrhagic lacunar infarct in the immediate left periventric ular white matter, age indeterminate. IMPRESSION: No obvious acute intracranial findings on this noninfused CT scan brain. Periventricular hypodensity consistent with chronic small vessel white matter ischemic changes is estela dent. RADIATION DOSE DELIVERED: 643.84mGy.cm Total DLP DATA REPOSITORY: All CT scans at this facility are submitted to the National Radiology Data Registry (NRDR) Dose Index Registry (DIR) with the [employer] ([employer]). RADIATION OPTIMIZATION: All CT scans at this facility use at least one of these dose optimization te chniques: automated exposure control; mA and/or kV adjustment per patient size (includes targeted exa ms where dose is matched to clinical indication); or iterative reconstruction.
[2021-02-07 04:34] LABS: Abs Immature Grans 0.03 10^3/uL (0.0-0.06); Absolute Basophil Count 0.01 10^3/uL (0.0-0.2); Absolute Eosinophil Count 0.04 10^3/uL (0.0-0.7); Absolute Lymphocyte Count 1.75 10^3/uL (1.2-3.4); Absolute Monocyte Count 0.53 10^3/uL (0.1-0.8); Absolute Neutrophil Count 4.26 10^3/uL (1.2-6.7); Basophils % 0.2; Eosinophils % 0.6; HCT 41.5 % (36.0-46.0); HGB 13.7 g/dL (11.2-15.7); Immature Grans % 0.5; Lymphocytes % 26.4; MCH 33.4 pg (27.0-33.0); MCV 101.2 fL (80-95); MPV 10.9 fL (8.0-11.0); Neutrophils % 64.3; Nucleated RBC 0 %; Platelet Count 203 10^3/uL (130-400); RDW 12.1 % (11.7-14.6); RDW-SD 45.9 fL; WBC 6.62 10^3/uL (4.4-10.8)
[2021-02-07 04:35] LABS: Bilirubin Negative (Negative); Blood Small (Negative); Clarity Clear (Clear); Glucose 500 mg/dL (Negative); Ketones Negative (Negative); Leukocyte Esterase Negative (Negative); Nitrite Negative (Negative); Specific Gravity 1.015 (1.005-1.025); Urobilinogen 0.2 EU/dL (Up TO 0.2)
[2021-02-07 04:39] LABS: Bacteria Negative HPF (Negative); C & S Indicated? No; Casts Negative LPF (Negative); Crystals Negative HPF (Negative); Epithelial Cells Rare HPF (Negative); Mucus Negative (Negative); WBC Negative HPF (0-5)
[2021-02-07 04:55] LABS: ALT 29 U/L (14-59); AST 32 U/L (15-37); Alkaline Phosphatase 130 U/L (46-116); Anion Gap 7.8 mmol/L (3-11); BUN 23 mg/dL (7-18); Bilirubin, Total 0.3 mg/dL (0.2-1.0); CO2 29.2 mmol/L (21.0-32.0); CREATININE 0.8 mg/dL (0.55-1.02); Chloride 97 mmol/L (98-107); Glucose 226 mg/dL (74-106); Magnesium 1.7 mg/dL (1.8-2.4); Sodium 134 mmol/L (136-145); Total Protein 7.7 g/dL (6.4-8.2)
[2021-02-07 05:07] LABS: Troponin I < 0.05 ng/mL (<0.06)
--- NOTE | 2021-02-07 05:18 | DI.VRAD_ITS ---
PROCEDURE INFORMATION: Exam: CT Head Without Contrast Exam date and time: 02/07/2021 4:21 AM Age: 80 years old Clinical indication: Altered mental status/memory loss; Confusion or disorientation; Patient HX: AMS TECHNIQUE: Imaging protocol: Computed tomography of the head without contrast. Radiation optimization: All CT scans at this facility use at least one of these dose optimization techniques: automated exposure control; mA and/or kV adjustment per patient size (includes targeted exams where dose is matched to clinical indication); or iterative reconstruction. COMPARISON: No relevant prior studies available. FINDINGS: Brain: Mild volume loss No hemorrhage. Moderate white matter disease. No mass effect. Cerebral ventricles: No ventriculomegaly. Bones/joints: Unremarkable. No acute fracture. Paranasal sinuses: Visualized sinuses are unremarkable. No fluid levels. Mastoid air cells: Visualized mastoid air cells are well aerated. Soft tissues: Unremarkable. IMPRESSION: No acute intracranial abnormality. Dictated and Authenticated by: Fidel Carter MD. Ordering:DENYS Solorio MD
--- NOTE | 2021-02-07 05:31 | DI.VRAD_ITS ---
PROCEDURE INFORMATION: Exam: XR Chest Exam date and time: 02/07/2021 5:25 AM Age: 80 years old Clinical indication: Other: AMS TECHNIQUE: Imaging protocol: XR of the chest. Views: 2 views. COMPARISON: CT HR CHEST/CHEST WO 12/26/2016 9:46 AM FINDINGS: Lungs: Chronic interstitial prominence noted. No consolidation. Pleural spaces: No pleural effusion. No pneumothorax. Heart/Mediastinum: No cardiomegaly. Bones/joints: Unremarkable. IMPRESSION: No acute findings. Dictated and Authenticated by: Fidel Carter MD. Ordering:DENYS Solorio MD
--- NOTE | 2021-02-07 06:08 | HPE_ITS ---
Date of service: 02/07/21 Time of Service: 06:08 Assessment and Plan Assessment and plan (1) Hypoglycemia: Status: Acute Assessment and plan: Recurrent hypoglycemia, appears to be largely due in this instance to missing hs snack. Given that this is the second episode in a week I think it best that the insulin be reduced or eliminated altogether. I don't know if she has had trial of oral agents but may not be effective in this very slim habitus (44 kg, BMI 18). In any case for now will hold insulin and track sugars to make sure there is no recurrence from lingering effect of Lantus. I will note the hypothermia. Almost certainly this is direct effect of the hypoglycemia, but for completeness sake would mention that this in combination with hypoglycemia could be seen with adrenal insufficiency. However K is normal (and sodium only low at 134) so I do not see that this diagnosis needs to be pursued at this time. At the same time I do not see any recent TSH so will update, as potentially uncorrected hypothyroid could be contributing as well. History of Present Illness History of Present Illness Chief Complaint: hypoglycemia Narrative: 80 female diabetic on insulin (7 units Lantus AM, plus unknown prandial doses Lispro). EMS called early this AM for confusion, sugar reported to be 50, and temp 91. Given D10 enroute and sensorium cleared. Glucose 226 on arrival, 143 fingerstick thereafter. Feels fine at present. No recent changes in insulin. Does report she did not have her usual hs snack last night. reports another hypoglycemic episode last week, sugar in 20s, again early AM. She is admitted for further monitoring. Review of Systems All systems reviewed & are unremarkable except as noted in HPI and below PFSH Medical History Abrasion of labia with infection 08/2019 treated with use of mupirocin 2%. Lesion healed at time of [facility] C visit 11/13/2019. KLAUDIA positive Anxiety with depression Basal cell carcinoma Cataract Depression Diabetes mellitus Dysphagia Gastroparesis diabeticorum Generalized degenerative joint disease of hand Hematuria, microscopic History of basal cell carcinoma (BCC) Hyperlipidemia Hypertension, essential, benign Hypothyroidism Macrocytosis Osteoporosis Preventative health care Tremor Tremor, essential Trochanteric bursitis, left hip Type 1 diabetes mellitus without complications Urgency incontinence Urinary incontinence Surgical History History of lymph node dissection of axilla Social History Smoking/Tobacco Use Status: Never Smoking risk assessment performed?: Yes Alcohol Intake: never Drug use: Never Substance use type: does not use Do you feel safe at home: Yes Do you feel safe in your relationship?: Yes Meds Allergies and Home Medications Allergies Allergy/AdvReac Type Severity Reaction Status Date / Time demeclocycline Allergy Intermediate Verified 02/07/21 05:07 [From Declomycin] metronidazole Allergy Verified 02/07/21 05:07 amoxicillin trihydrate AdvReac Intermediate Nausea Verified 02/07/21 05:07 [From Augmentin] blue dye AdvReac Intermediate Uncomfortab Verified 02/07/21 05:07 le dicyclomine AdvReac Intermediate Headache Unverified 02/07/21 05:07 potassium clavulanate AdvReac Intermediate Nausea Verified 02/07/21 05:07 [From Augmentin] Home Medications Medication Instructions Recorded Confirmed Type acetaminophen [Tylenol] 325 mg PO Q4H PRN tab-cap 03/12/13 02/07/21 History aspirin [Aspirin Low-Strength] 81 mg PO DAILY tab.chew 03/12/13 02/07/21 History vitamin B complex 1 ea PO DAILY 05/14/15 02/07/21 History aluminum-mag hydroxide-simethicone 30 ml PO Q6H PRN ml 10/31/19 02/07/21 History 200 mg-200 mg-20 mg/5 mL oral susp ascorbate calcium (vitamin C) 500 500 mg PO DAILY 10/31/19 02/07/21 History mg tablet blood sugar diagnostic #10 each 10/31/19 11/10/20 History cholecalciferol (vitamin D3) 25 1,000 unit PO DAILY 10/31/19 02/07/21 History mcg (1,000 unit) capsule insulin lispro 100 unit/mL 100 unit SUBCUT .PUMP 10/31/19 02/07/21 History subcutaneous solution insulin syringe-needle U-100 0.5 #10 each 10/31/19 11/10/20 History mL 29 gauge x 1/2 ketotifen fumarate 0.025 % (0.035 1 drp OP BID 10/31/19 02/07/21 History %) eye drops lancets #50 each 10/31/19 11/10/20 History levothyroxine 88 mcg tablet 88 mcg PO DAILY tab-cap 10/31/19 02/07/21 History lorazepam 0.5 mg tablet 0.5 mg PO HS 10/31/19 02/07/21 History losartan 25 mg tablet 50 mg PO DAILY tab-cap 10/31/19 02/07/21 History polyethylene glycol 3350 17 17 gm PO QHS PRN gm 10/31/19 02/07/21 History gram/dose oral powder sertraline 50 mg tablet 125 mg PO DAILY tab 10/31/19 02/07/21 History simvastatin 10 mg tablet 10 mg PO DAILY tab-cap 10/31/19 02/07/21 History insulin glargine [Lantus Solostar 7 unit SUBCUT QAM 02/07/21 02/07/21 History U-100 Insulin] Exam Narrative Exam Narrative: 144/50, 61, 36.3, 15, 100% RA. HEENT atraumatic; neck supple; lungs clear; heart RRR; abdomen soft and NT; extremities w/o edema; neuro Ox3, resting tremor, moves all 4s Results Labs Result diagrams: 02/07/21 04:20 02/07/21 04:20 Labs: Laboratory Results - last 24 hr 02/07/21 02/07/21 02/07/21 03:20 04:20 04:20 WBC 6.62 RBC 4.10 Hgb 13.7 Hct 41.5 MCV 101.2 H MCH 33.4 H MCHC 33.0 RDW 12.1 Plt Count 203 MPV 10.9 Immature Gran % 0.5 Neutrophils % 64.3 Lymphocytes % 26.4 Monocytes % 8.0 Eosinophils % 0.6 Basophils % 0.2 Nucleated RBC % 0 Absolute Neutrophils 4.26 Absolute Lymphocytes 1.75 Absolute Monocytes 0.53 Absolute Eosinophils 0.04 Absolute Basophils 0.01 Sodium 134 L Potassium 4.0 Chloride 97 L Carbon Dioxide 29.2 Anion Gap 7.8 BUN 23 H Creatinine 0.8 Estimated GFR/1.73 m2 >= 60.00 Glucose 226 H Calcium 9.0 Magnesium 1.7 L Total Bilirubin 0.3 AST 32 ALT 29 Alkaline Phosphatase 130 H Troponin I < 0.05 Total Protein 7.7 Albumin 4.0 Urine Color Yellow Urine Clarity Clear Urine pH 6.0 Ur Specific [place] 1.015 Urine Protein Negative Urine Ketones Negative Urine Blood Small H Urine Nitrite Negative Urine Bilirubin Negative Urine Urobilinogen 0.2 Ur Leukocyte Esterase Negative Urine RBC 3-5 H Urine WBC Negative Ur Epithelial Cells Rare Urine Crystals Negative Urine Bacteria Negative Urine Casts Negative Urine Mucus Negative Ur Culture Indicated? No Urine Glucose 500 H Last Vital Signs Temp 36.3 C L 02/07/21 05:56 Pulse 61 02/07/21 05:31 Resp 15 02/07/21 05:31 BP 144/50 H 02/07/21 05:31 Pulse Ox 100 02/07/21 05:31 COVID-19 Screening Have you, or household traveled for leisure in last 14 days?: No Had IN PERSON contact w/suspected or confirmed C-19 person: No
[2021-02-07 06:41] LABS: Source Nasal/Nares
[2021-02-07 06:53] LABS: TSH 1.78 uIU/mL (0.36-3.74)
[2021-02-07 07:27] LABS: Troponin I < 0.05 ng/mL (<0.06)
[2021-02-07 08:38] LABS: Hemoglobin A1C 7.4 % (<5.7)
[2021-02-07] MEDS: Sertraline 50 MG TAB 125 MG PO (09:18)
[2021-02-07] MEDS: MAGNESIUM SULFATE 2 GM/50 ML BAG IVPB (09:18)
[2021-02-07] MEDS: Normal Saline Flush 10 ML SYR IVP ×2 (09:19→19:50)
--- NOTE | 2021-02-07 09:50 | INITIAL_ITS ---
- If Service Date Differs Date of service: 02/07/21 Time of Service: 09:50 Care Management Initial Assess REASON FOR HOSPITALIZATION:: Hypoglycemia PAST MEDICAL HISTORY/PAST SURGICAL HISTORY:: Medical History . Abrasion of labia with infection. 08/2019 treated with use of mupirocin 2%. Lesion healed at time of [facility] C visit 11/13/2019. KLAUDIA positive. Anxiety with depression. Basal cell carcinoma. Cataract. Depression. Diabetes mellitus. Dysphagia. Gastroparesis diabeticorum. Generalized degenerative joint disease of hand. Hematuria, microscopic. History of basal cell carcinoma (BCC). Hyperlipidemia. Hypertension, essential, benign. Hypothyroidism. Macrocytosis. Osteoporosis. Preventative health care. Tremor. Tremor, essential. Trochanteric bursitis, left hip. Type 1 diabetes mellitus without complications. Urgency incontinence. Urinary incontinence. Surgical History . History of lymph node dissection of axilla PREVIOUS FUNCTIONAL STATUS/SOCIAL/FAMILY SUPPORTS:: Sunitha lives in a single family home in [place] with her Twin. They have 3 children, a son who lives in [facility] and 2 daughters. One daughter lives in [place] and one in [place]. Megan describes the children as very supportive but their availability is limited by distance. Megan has no grandchildren but states she wi shes she did. Megan is very active and independent at baseline. The only community support she and Twin receive is MOW for Twin. Megan is unable to eat the meals because of her diabetic restrictions. CURRENT FUNCTIONAL STATUS:: Megan was sitting up in a chair when CM met with her. She was pleasant and receptive to conversation. Megan shared how difficult things have been for her lately. She stated that she normally doesn't stop but that recently she can't seem to accomplish anything. Megan informed CM that her children want her to move closer to them and that they had an appointment to see a place tomorrow but now that will have to wait. She has been trying to pack and give things away in preparation for putting their house up for sale but doesn't seem to be making much progress. She shared that Twin is not helpful he just doesn't get it. It wasn't clear exactly what she meant but when asked she denied that he has any sort of dementia or memory loss. Megan explained that he is very disorganized and that she is a perfectionist. She tried hiring a young woman to help but her performance was not up to Megan's standards. ADVANCE DIRECTIVES:: none on file Has patient been provided with info about the portal/API?: Yes Did the patient sign up for the portal?: No CODE STATUS:: Full Code INSURANCE COVERAGE / FINANCIAL ISSUES:: SAYDA PARKINSON CURRENT HOME/COMMUNITY SERVICES/EQUIPMENT:: MOWs for her Twin PRIMARY CARE PHYSICIAN:: Evelyn Nevarez POTENTIAL DISCHARGE NEEDS:: follow up with PCP anf d discharge plan of care PATIENT/FAMILY EDUCATION NEEDS:: Review of discharge plan, medications, activity, limitations, Ask Me Three TRANSPORTATION:: via private vehicle with family PLAN:: Megan will likley be discharged home with no new services. She will follow up with her PCP and plan of care and transport with a friend. CM will continue to support Megan and Twin and assess for discharge planning needs.
[2021-02-07 11:06] LABS: COVID-19 PCR Negative (Negative)
[2021-02-07] MEDS: Levothyroxine 88 MCG TAB PO (11:24)
[2021-02-07] MEDS: Insulin Aspart 300 UNITS/3 ML PEN SC ×4 (12:13→21:34)
--- NOTE | 2021-02-07 13:48 | CHAPLAIN ---
Megan and I know each other from when she volunteered with [employer]. She is primarily worried about Twin these days, as he seems to have changed a bit since getting a pace maker in September. Her children are supportive but live at a distance, 2 in [place], one in [place], and Megan does not like to ask them to take time off from work to come to be with her an Twin. I encouraged Megan to let the Link Trainer Operator, Myesha, know what's going on and Myesha may be able to find more supports for Megan. Megan is a member of the [employer] and her [employer] claritza is very important to her.
--- NOTE | 2021-02-07 17:55 | PGE_ITS ---
Date of Service Date of service: 02/07/21 Time of Service: 17:56 Subjective Subjective Interval history since last seen: Ms Sun has not had any more hypoglycemic events today. Her BGs have now climbed to 300s. I have reviewed [place] [facility] [place] and spoke with the patient. She was supposed to have switched to levemir qam but has not yet done so because she wanted to finish lantus that she had at home first. Unfortunately, I think this probably contributed to her hypoglycemic episodes at night. We will be starting low dose levemir tonight, add more tomorrow, with the expectation that she will start taking 7 units of levemir in the morning once she returns home. We also discussed her prandial insulin rx (3 units with breakfast and lunch; 2-4 units with dinner depending on size of dinner). Orders to reflect this have been placed. The patient would greatly benefit from having a CGM, which I am ordering. We will verify insurance coverage prior to discharge. She would benefit from home health nursing and [employer]STIC[employer] CONTROL INSPECTOR based on the stressors at home (her 's deteriorating condition which sounds like dementia by description). Objective Last Vital Signs Temp 36.8 C 02/07/21 15:36 Pulse 69 02/07/21 15:36 Resp 18 02/07/21 15:36 BP 119/60 02/07/21 15:36 Pulse Ox 99 02/07/21 15:36 Laboratory Results - last 24 hr 02/07/21 02/07/21 02/07/21 03:20 04:20 04:20 WBC 6.62 RBC 4.10 Hgb 13.7 Hct 41.5 MCV 101.2 H MCH 33.4 H MCHC 33.0 RDW 12.1 Plt Count 203 MPV 10.9 Immature Gran % 0.5 Neutrophils % 64.3 Lymphocytes % 26.4 Monocytes % 8.0 Eosinophils % 0.6 Basophils % 0.2 Nucleated RBC % 0 Absolute Neutrophils 4.26 Absolute Lymphocytes 1.75 Absolute Monocytes 0.53 Absolute Eosinophils 0.04 Absolute Basophils 0.01 Sodium 134 L Potassium 4.0 Chloride 97 L Carbon Dioxide 29.2 Anion Gap 7.8 BUN 23 H Creatinine 0.8 Estimated GFR/1.73 m2 >= 60.00 Glucose 226 H Hemoglobin A1c Calcium 9.0 Magnesium 1.7 L Total Bilirubin 0.3 AST 32 ALT 29 Alkaline Phosphatase 130 H Troponin I < 0.05 Total Protein 7.7 Albumin 4.0 TSH Urine Color Yellow Urine Clarity Clear Urine pH 6.0 Ur Specific [place] 1.015 Urine Protein Negative Urine Ketones Negative Urine Blood Small H Urine Nitrite Negative Urine Bilirubin Negative Urine Urobilinogen 0.2 Ur Leukocyte Esterase Negative Urine RBC 3-5 H Urine WBC Negative Ur Epithelial Cells Rare Urine Crystals Negative Urine Bacteria Negative Urine Casts Negative Urine Mucus Negative Ur Culture Indicated? No Urine Glucose 500 H COVID-19 Source SARS-CoV-2 (PCR) 02/07/21 02/07/21 02/07/21 04:20 06:35 07:04 WBC RBC Hgb Hct MCV MCH MCHC RDW Plt Count MPV Immature Gran % Neutrophils % Lymphocytes % Monocytes % Eosinophils % Basophils % Nucleated RBC % Absolute Neutrophils Absolute Lymphocytes Absolute Monocytes Absolute Eosinophils Absolute Basophils Sodium Potassium Chloride Carbon Dioxide Anion Gap BUN Creatinine Estimated GFR/1.73 m2 Glucose Hemoglobin A1c Calcium Magnesium Total Bilirubin AST ALT Alkaline Phosphatase Troponin I < 0.05 Total Protein Albumin TSH 1.78 Urine Color Urine Clarity Urine pH Ur Specific [place] Urine Protein Urine Ketones Urine Blood Urine Nitrite Urine Bilirubin Urine Urobilinogen Ur Leukocyte Esterase Urine RBC Urine WBC Ur Epithelial Cells Urine Crystals Urine Bacteria Urine Casts Urine Mucus Ur Culture Indicated? Urine Glucose COVID-19 Source Nasal/nares SARS-CoV-2 (PCR) Negative 02/07/21 07:21 WBC RBC Hgb Hct MCV MCH MCHC RDW Plt Count MPV Immature Gran % Neutrophils % Lymphocytes % Monocytes % Eosinophils % Basophils % Nucleated RBC % Absolute Neutrophils Absolute Lymphocytes Absolute Monocytes Absolute Eosinophils Absolute Basophils Sodium Potassium Chloride Carbon Dioxide Anion Gap BUN Creatinine Estimated GFR/1.73 m2 Glucose Hemoglobin A1c 7.4 H Calcium Magnesium Total Bilirubin AST ALT Alkaline Phosphatase Troponin I Total Protein Albumin TSH Urine Color Urine Clarity Urine pH Ur Specific [place] Urine Protein Urine Ketones Urine Blood Urine Nitrite Urine Bilirubin Urine Urobilinogen Ur Leukocyte Esterase Urine RBC Urine WBC Ur Epithelial Cells Urine Crystals Urine Bacteria Urine Casts Urine Mucus Ur Culture Indicated? Urine Glucose COVID-19 Source SARS-CoV-2 (PCR)
[2021-02-07] MEDS: Acetaminophen 325 MG TAB PO (19:51)
[2021-02-07] MEDS: Losartan 50 MG TAB PO (19:51)
[2021-02-07] MEDS: Aspirin 81 MG CHEW PO (19:51)
[2021-02-08] MEDS: Levothyroxine 88 MCG TAB PO (06:06)
[2021-02-08 07:01] LABS: Anion Gap 5.3 mmol/L (3-11); BUN 22 mg/dL (7-18); CO2 30.7 mmol/L (21.0-32.0); CREATININE 0.9 mg/dL (0.55-1.02); Calcium 9.1 mg/dL (8.5-10.1); Chloride 102 mmol/L (98-107); Glucose 201 mg/dL (74-106); Magnesium 1.9 mg/dL (1.8-2.4); Potassium 4.9 mmol/L (3.5-5.1); Sodium 138 mmol/L (136-145)
[2021-02-08 07:51] VITALS: BP 118/54; PULSE 69; RESP 18; TEMP 36; O2SAT 100
[2021-02-08] MEDS: Sertraline 50 MG TAB 125 MG PO (08:11)
[2021-02-08] MEDS: Insulin Aspart 300 UNITS/3 ML PEN SC ×4 (08:12→13:00)
--- NOTE | 2021-02-08 11:38 | W.INDIABCONS ---
Date of service: 02/08/21 Time of Service: 11:38 Diabetes Inpatient Consult DESCRIPTION/ASSESSMENT: Met with Sunitha today, she will be discharged home today. Sunitha was admitted to [facility] with hypoglycemia, hypothermia with long standing hx of DM1 (Dx when she was in her 40s). Previously used an insulin pump(Sep 2020) but stopped using it due to pain at insertion site. Most recent A1C: 7.4%, however, Sunitha reports that she has frequent hypo and hyperglycemic events, A1C may not be an accurate measure of glycemic control. Referral made to place Jae 2 continuous glucose monitor prior to discharge- however, patient declines as she states she does not have enough body fat and any needle inserted for length of time will cause pain. Sunitha prefers finger sticks QID for monitoring. Sunitha reports on day of admission, had been up 3-4 times during night helping her to bathroom. She slept in and did not have breakfast, despite taking her lantus at bedtime leading to hypoglycemic event. MD reports will have home health when discharges for help with , review of blood sugars/medication management. INTERVENTION: Provided education on DM including Hyper/hypoglycemia s/s with action plan for each scenario. Definition and types of CHO with examples, CHO counting, DM meal planning and label reading literature. Provided a blood sugar and food record chart and materials to reiterate CHO counting techniques. Reviewed desirable BG levels with patient with food choices and portions for optimal outcomes. Provided contact information for this RD and encouraged to call with any f/u questions r/t to DM self management. CDM from kitchen has been helping to count CHO's and achieve intake of ~65g/CHO per meal period. Encouraged regular meal times with consistent carb intake. Meal plans provided PLAN: E Commerce Marketing Manager will call next week to review blood sugars/medication Sunitha to continue QID finger sticks and follow insulin regime per D/C instructions Sunitha to follow up with PCP 1 weeks s/p discharge Time Spent in Nutritional Counseling and Treatment: 30
--- NOTE | 2021-02-08 11:47 | DSE_ITS ---
Date of service: 02/08/21 Time of Service: 11:47 DS: Diagnosis Discharge Diagnosis (1) Hypoglycemia: Status: Acute Discharge Plan Disposition Patient Disposition: HOME W/HOME HEALTH SERVICE Condition: Stable Discharge Details Reason For Visit: HYPOGLYCEMIA Admit Date/Time: 02/07/21 06:24 Admit Provider: Jorge Whitney Attending Provider: Jorge Whitney Primary Care Provider: Evelyn Nevarez [facility] Hospital Course: this is a 80 female brittle type I diabetic on insulin who presented to the ED by EMS that was called early in AM for confusion, blood sugar reported to be 50, and temp 91. She was given D10 enroute and sensorium cleared. Her glucose was 226 on arrival, 143 fingerstick thereafter. Feels fine and at baseline on arriva l. There were no recent changes in insulin. she was supposed to be transitioning to levemir from lantus but was using up her supply of lantus. She did report she did not have her usual hs snack the night prior. reports another hypoglycemic episode last week, sugar in 20s, again early AM. hemoglobin A1C is 7.4. She was admitted to observation, her basal insulin was changed to levemir and dropped to 5 units daily. she never had any further hypoglycemia, in fact was elevated at 300-400. She was approved for CGM through her insurance but she decided not to move forward with it (as previously discussed with endocrine) due to her low BMI, she found her insulin pump was very painful and did not want to have this secured to her. I did call her endocrine office at [facility] and spoke with the on-call provider to review her case and discharge recommendations, who recommends dropping levemir to 6 units in the am and to keep same correction and meal coverage as previously directed. she should follow up with their office outpatient. We will refer to home health services for further education, monitoring and management. discharge discussed with Dr Ovalles. Home Meds and New Rx's Prescriptions: New (DME) FreeStyle Jae 2 Sensor Kit See Rx Instructions .ROUTE .MEDSUPPLY Qty: 2 RF: 6 Levemir FlexTouch U-100 Insuln 100 unit/mL (3 mL) Insulin Pen 6 unit subcut DAILY Qty: 15 RF: 0 insulin aspart U-100 [Novolog Flexpen U-100 Insulin] 100 unit/mL (3 mL) Insulin Pen See Rx Instructions .ROUTE .COMPLEX Qty: 15 RF: 0 insulin aspart U-100 [Novolog Flexpen U-100 Insulin] 100 unit/mL (3 mL) Insulin Pen See Rx Instructions .ROUTE .COMPLEX Qty: 15 RF: 0 Continued acetaminophen [Tylenol] 325 MG tablet 325 mg PO Q4H PRN RF: 0 aspirin [Aspirin Low-Strength] 81 MG tablet,chewable 81 mg PO DAILY RF: 0 vitamin B complex 1 EACH capsule 1 ea PO DAILY RF: 0 (DME) insulin syringe-needle U-100 [BD Insulin Syringe] 0.5 mL 29 gauge x 1/2 syringe See Rx Instructions .ROUTE .MEDSUPPLY Qty: 10 RF: 0 (DME) lancets [OneTouch UltraSoft Lancets] Misc See Rx Instructions .ROUTE .MEDSUPPLY Qty: 50 RF: 0 (DME) Contour Next Test Strips Strip See Rx Instructions .ROUTE .MEDSUPPLY Qty: 10 RF: 0 ketotifen fumarate [Alaway] 0.025 % (0.035 %) drops 1 drp OP BID RF: 0 ascorbate calcium (vitamin C) 500 mg tablet 500 mg PO DAILY RF: 0 polyethylene glycol 3350 [Miralax] 17 gram/dose powder 17 gm PO QHS PRNRF: 0 alum-mag hydroxide-simeth 200-200-20 mg/5 mL suspension 30 ml PO Q6H PRNRF: 0 sertraline 50 mg tablet 125 mg PO DAILY RF: 0 losartan 25 mg tablet 50 mg PO DAILY RF: 0 cholecalciferol (vitamin D3) [Vitamin D3] 25 mcg (1,000 unit) capsule 1,000 unit PO DAILY RF: 0 levothyroxine [Synthroid] 88 mcg tablet 88 mcg PO DAILY RF: 0 lorazepam 0.5 mg tablet 0.5 mg PO HS RF: 0 simvastatin [Zocor] 10 mg tablet 10 mg PO DAILY RF: 0 ketotifen fumarate [Alaway] 0.025 % (0.035 %) Drops 0.025 drp ophthalmic (eye) BID RF: 0 levothyroxine [Synthroid] 88 mcg tablet 88 mcg PO DAILY RF: 0 turmeric 400 mg Capsule 400 mg PO DAILY RF: 0 losartan 50 mg tablet 50 mg PO DAILY RF: 0 sertraline [Zoloft] 100 mg Tablet 125 mg PO DAILY RF: 0 simvastatin 10 mg tablet 10 mg PO DAILY RF: 0 cholecalciferol (vitamin D3) [Vitamin D3] 10 mcg (400 unit) Tablet 10 mcg PO DAILY RF: 0 Discontinued Lantus Solostar U-100 Insulin 100 unit/mL (3 mL) insulin pen 7 unit SUBCUT QAM RF: 0 insulin lispro 100 unit/mL Insulin Pen 3 unit SUBCUT TID RF: 0 Discharge Instructions Instructions: Hypoglycemia in a Person with Diabetes (DC) Additional Instructions: the only insulin change is your levemir which is dropped from 7 units to 6 units. continue to monitor your blood sugars 4-6 times daily eat all meals and snacks. Referrals: Evelyn Nevarez MD [Primary Care Provider] - 02/10/21 10:50 am Activity:: Activity as Tolerated Equipment/Supplies:: No Equipment Needed Diet:: Carb Counting Discharge Orders Discharge Orders: Discharge Order (Routine); Ordered 02/08/21 Ordered By: Radha Coombs DS: Summary Time Spent with Patient providing and/or coordinating discharge services: Greater than 30 minutes Status at Discharge Functional status at discharge: independent ambulation Overall status at discharge: patient is back to baseline Mental Status: mental status grossly normal Speech and Movement: speech and movement normal Mood: congruent mood Affect: anxious affect Exam Narrative Exam Narrative: Const: Thin elderly female in NAD. HEENT: NC/AT. Normal facial exam. Eyes: Normal conjunctiva and sclera. Neck: Supple. Trachea midline. Lungs: Normal respiratory effort. Lungs are clear. Cor: RRR without murmur/gallop. Good radial pulses. GI: Soft. non tender. No guarding or rebound. Neuro: A+O x 3. Normal speech, mentation. Tremor present. No gross motor or sensory deficit. Ext: no edema, moves all extremities. Psych Mental Status: mental status grossly normal Speech and Movement: speech and movement normal Mood: congruent mood Affect: anxious affect DS: Data Vitals/I&O Vitals and I&O: Vital Signs Temperature 36.0 C L 02/08/21 07:51 Temperature Source Tympanic 02/08/21 07:51 Pulse 69 02/08/21 07:51 Pulse Rhythm Regular 02/08/21 08:16 Pulse 64 02/07/21 06:20 Respiratory Rate 18 02/08/21 07:51 Respiratory Effort Non-Labored 02/08/21 08:16 Respiratory Depth Normal 02/08/21 08:16 Respiratory Pattern Normal 02/08/21 08:16 Blood Pressure 118/54 L 02/08/21 07:51 Blood Pressure Mean 68 02/07/21 06:16 Blood Pressure Position Supine 02/07/21 04:37 Pulse Oximetry 100 02/08/21 07:51 Oxygen Delivery Method Room Air 02/08/21 07:51 Oxygen Flow Rate 0 02/08/21 07:51 Pain Level 0 02/08/21 07:51 Intake & Output 02/07/21 02/07/21 02/08/21 11:59 23:59 11:59 Intake Total 750 / 750 Output Total 950 / 2350 1400 / 2350 1300 / 1300 Balance -950 / -1600 -650 / -1600 -1300 / -1300 Weight 44 kg Intake: IV Oral 740 / 740 Output: Urine 950 / 2350 1400 / 2350 1300 / 1300 Other: Urine Color Pale Yellow Yellow Yellow Urine Appearance Clear Clear Clear Data Completed and Pending Labs on day of discharge: Labs from last 24 hours 02/08/21 06:22 Sodium 138 Potassium 4.9 D Chloride 102 Carbon Dioxide 30.7 Anion Gap 5.3 BUN 22 H Creatinine 0.9 Estimated GFR/1.73 m2 >= 60.00 Glucose 201 H Calcium 9.1 Magnesium 1.9 PFSH Medical History Abrasion of labia with infection 08/2019 treated with use of mupirocin 2%. Lesion healed at time of WW C visit 11/13/2019. KLAUDIA positive Anxiety with depression Basal cell carcinoma Cataract Depression Diabetes mellitus Dysphagia Gastroparesis diabeticorum Generalized degenerative joint disease of hand Hematuria, microscopic History of basal cell carcinoma (BCC) Hyperlipidemia Hypertension, essential, benign Hypothyroidism Macrocytosis Osteoporosis Preventative health care Tremor Tremor, essential Trochanteric bursitis, left hip Type 1 diabetes mellitus without complications Urgency incontinence Urinary incontinence Surgical History History of lymph node dissection of axilla Social History Smoking/Tobacco Use Status: Never Smoking risk assessment performed?: Yes Alcohol Intake: never Drug use: Never Substance use type: does not use Do you feel safe at home: Yes Do you feel safe in your relationship?: Yes
[2021-02-08 12:37] LABS: Glucose 422 mg/dL (74-106)
--- NOTE | 2021-02-08 14:19 | PDOC.HHF2F ---
Home Health Certification Home Health Certification: 1. Encounter Date and Reason I certify that Sunitha Sun was seen by Radha Coombs on 02/08/21 and that I had a [id number] encounter with this patient that meets the physician face to face encounter requirements. 2. Clinical Findings Supporting Skilled Need and Homebound Status I certify that home health services are medically necessary, include either intermittent penitentiary and/or physical/speech therapy, and that this patient is homebound in that absences from the home require considerable and taxing effort and are infrequent or of short duration, or are attributable to the need to receive medical care. [X] (a) Attached documentation from encounter provides clinical findings supporting skilled need and homebound status (including what assistance patient requires to leave the home). The encounter with the patient was in whole, or in part, for the following medical condition, which is the primary reason for home health care: HYPOGLYCEMIA Longterm: routine evaluation, monitoring and nursing care. blood sugar monitoring, insulin administration. Physical Therapy:routine evaluation and treatment MAINTENANCE DEPARTMENT MANAGER: routine evaluation and management Homebound: unable to safely leave the house unattended d/t weakness and unsteady gait associated with hypoglycemic events. 3. Certification and Authentication I certify that I composed the above information based on my clinical judgement relating to this patient's medical condition and, if applicable, clinical findings communicated to me by the NPP or inpatient physician who performed the Home Health Referral. All further orders will be obtained through (Community Based Physician - PCP)
--- NOTE | 2021-02-08 15:09 | CHAPLAIN ---
Megan was up in a chair this morning when I visited. She talked about making plans with Twin to move to [place], a long-term community, close to their daughter Shira, and son Huseyin. Shira is home for a visit now. Megan was being discharged this afternoon and was ready to go when her , Twin, arrived at 2 p.m. Megan met with care management to talk about other supports that are available to her and Twin. Megan is Catholice, a member of [employer] and her Holiness claritza is very important to her.
--- NOTE | 2021-02-08 19:22 | CMDISCH_ITS ---
- If Service Date Differs Date of service: 02/08/21 Time of Service: 19:22 LACE Index Scoring Tool - Questions: Length of Stay (in days): 1 Acuity (Admit via E.D.?): Yes Comorbidities: Diabetes w/o Complication E.D. Visits: 3 - Answers: Total Score: 8 Risk of Readmission: Low Risk Care Management Discharge Reason for Hospitalization: Hypoglycemia Discharge Plan: Megan will be discharged home with new home health services for RN, PT, OT, [employer]. She will follow up with her PCP and plan of care and transport with a friend. Patient/Family Education Needs: Review of discharge plan, medications, activity, limitations, Ask Me Three Services Needed at Discharge: Home Health Care Services, Physical Therapy
== END 2021-02-08 15:16 | disposition home health service (06) ==
LOC: ER 07:01 → MS 07:19
PROVIDERS: Internal Medicine; Admitting Provider General Practice; Emergency Provider Emergency Medicine; PCP Family Medicine; Visit Provider General Practice
DX: E11.649 Type 2 diabetes mellitus with hypoglycemia without coma (principal); R68.0 Hypothermia, not associated with low environmental temperature; E11.43 Type 2 diabetes mellitus with diabetic autonomic (poly)neuropathy; K31.84 Gastroparesis; Z79.4 Long term (current) use of insulin; F41.8 Other specified anxiety disorders; R13.10 Dysphagia, unspecified; E78.5 Hyperlipidemia, unspecified; I10 Essential (primary) hypertension; E03.9 Hypothyroidism, unspecified; M81.0 Age-related osteoporosis without current pathological fracture; N39.41 Urge incontinence; M70.62 Trochanteric bursitis, left hip; G25.0 Essential tremor
CPT/HCPCS: 36415; 36416; 51702; 80048; 80053; 82947; 82962; 87635; 93005; 99285; 70450; 71046; 81003; 81015; 83036; 83735; 84443; 84484; 85025; 93010; 99217; 99218; G0378; J3490